=== PATIENT | female | born 1940 | race Caucasian/White ===

== ENCOUNTER → 2016-10-18 | Outpatient (CLI) | payer MEDICARE, OTHER ==
[2014-11-19 16:33] VITALS: BP 146/82
[~2016-10-18] MED LIST: ALPR1TAB6 PO; ATEN25TA PO; CHOL10002 PO; CHOL5000 PO; ESTR42.53 VG; GLUCOSAMINE 1,1 EACH PO; LOSA50TA6 PO; MULT-246 PO; OMEP20CA9 PO; QUET100T PO; QUET50TA8 PO; SERT25TA4 PO; SERT50TA8 PO; SIMV20TA3 PO
--- NOTE | 2016-10-18 18:08 | CARD ---
APPROVED REPORT EXAM: Two-dimensional and M-mode echocardiogram with Doppler and color Doppler. Other Information Quality : GoodHR: 57bpm Rhythm : Bradycardia with PVC's INDICATION Dyspnea Aortic insuffinciency, Mitral regurgitation, 2D DIMENSIONS RVDd3.2 (2.9-3.5cm)Left Atrium(2D)3.4 (1.6-4.0cm) IVSd0.9 (0.7-1.1cm)Aortic Root(2D)2.8 (2.0-3.7cm) LVDd4.8 (3.9-5.9cm)LVOT Diameter2.1 (1.8-2.4cm) PWd0.9 (0.7-1.1cm)LVDs3.2 (2.5-4.0cm) FS (%) 34.5 %SV69.7 ml LVEF(%)63.0 (>50%) Aortic Valve AoV Peak Sudhakar.168.7cm/sAoV VTI31.0cm AO Peak GR.11.4mmHgLVOT Peak Sudhakar.102.5cm/s LVOT VTI 24.66cmAO Mean GR.5mmHg BONI (VMAX)2.51ny7XUR (VTI)2.77cm2 AI P 1/2 Ksnh618co Mitral Valve MV E Vetgrjer04.4cm/sMV DECEL OCXP655ux MV A Ztlmjrpx43.4cm/sMV E Mean Gr.1mmHg MV JIS31keF/A Ratio1.0 MV A Gmnbfvlp847usBBF (PHT)4.22cm2 TDI E/Lateral E'8.4E/Medial E'15.2 Pulmonary Valve PV Peak Rixcnabe33.4cm/sPV Peak Grad.3mmHg RVOT VTI18.1cm Tricuspid Valve TR P. Sgcjhhkf028hk/sRAP YMUENBYP3nqUi TR Peak Gr.88cnFzAOCL03ffFw Pulmonary Vein S1 Rtpekfmw92.4cm/sD2 Rsjurefe09.0cm/s PVa mrhlcywl808gmmv LEFT VENTRICLE The left ventricle is normal size. Patient has mild concentric left ventricular hypertrophy Left vent ricle systolic function is normal. The Ejection Fraction is 63%. There is normal LV segmental wall mo tion. The left ventricular diastolic function and filling is normal for age. There is no ventricular septal defect visualized. RIGHT VENTRICLE The right ventricle is normal size. The right ventricular systolic function is normal. ATRIA The left atrium size is normal. The right atrium size is normal. The interatrial septum is intact wit h no evidence for an atrial septal defect or patent foramen ovale as noted on 2-D or Doppler imaging. AORTIC VALVE The aortic valve is mildly thickened but opens well. The aortic valve is trileaflet. Doppler and [place] r Flow revealed moderate aortic regurgitation. There is no significant aortic valvular stenosis. MITRAL VALVE The mitral valve is normal in structure. There is no evidence of mitral valve prolapse. There is no m itral valve stenosis. Doppler and Color Flow revealed mild mitral regurgitation. TRICUSPID VALVE The tricuspid valve is normal in structure. Doppler and Color Flow revealed moderate tricuspid regurg itation. The PA pressure was estimated at 40 mmHg. There is no tricuspid valve stenosis. PULMONIC VALVE The pulmonary valve is normal in structure. Doppler and Color Flow revealed mild pulmonic valvular re gurgitation. There is no pulmonic valvular stenosis. GREAT VESSELS The aortic root is normal in size. The ascending aorta is dilated at 3.4cm. Normal pulmonary venous f low (Doppler). The IVC is normal in size and collapses >50% with inspiration. PERICARDIAL EFFUSION There is no pleural effusion. There is no evidence of significant pericardial effusion. Critical Notification Critical Value: No <Conclusion> Left ventricle systolic function is normal. The Ejection Fraction is 63%. Patient has mild concentric left ventricular hypertrophy The left atrium size is normal. The right atrium size is normal. The aortic valve is mildly thickened but opens well. The aortic valve is trileaflet. Doppler and Color Flow revealed moderate aortic regurgitation. Doppler and Color Flow revealed mild mitral regurgitation. Doppler and Color Flow revealed moderate tricuspid regurgitation. The PA pressure was estimated at 40 mmHg. Doppler and Color Flow revealed mild pulmonic valvular regurgitation. The ascending aorta is dilated at 3.4cm. There is no evidence of significant pericardial effusion.
== END | disposition home or self-care (01) ==
LOC: ECHO 12:34
PROVIDERS: ATTEND Internal Medicine Cardiovascular Disease
DX: I08.3 Combined rheumatic disorders of mitral, aortic and tricuspid valves (principal)
CPT/HCPCS: 93306

== ENCOUNTER → 2016-12-15 | Outpatient (CLI) | payer MEDICARE, OTHER ==
[2014-11-19 16:33] VITALS: BP 146/82
[2016-12-15 09:18] LABS: FREE T4 0.83 ng/dL (0.76-1.46)
[2016-12-15 09:29] LABS: CHOLESTEROL/HDL RATIO 2.1
== END | disposition home or self-care (01) ==
LOC: RT 08:08
PROVIDERS: ATTEND Psychiatry & Neurology Neurology
DX: E78.5 Hyperlipidemia, unspecified (principal); R41.3 Other amnesia
CPT/HCPCS: 36415; 80061; 82550; 82607; 84439; 84443; 95816

== ENCOUNTER 2018-09-02 19:31 | Inpatient (IN) | payer MEDICAID, MEDICARE, OTHER ==
[~2018-09-02] VITALS: Ht 154.9 cm; Wt 69.6 kg
[~2018-09-02 19:31] MED LIST changes: +LOSA-73 PO; -LOSA50TA6 PO; +OMEP20CA10 PO; -OMEP20CA9 PO; -QUET50TA8 PO; +QUET50TA9 PO
--- NOTE | 2018-09-02 19:56 | PHYS DOC ---
Adult General Chief Complaint Chief Complaint: MECHANICAL FALL HPI HPI Patient is a 78-year-old female who presents with complaint of pain to her left lower leg and left arm after falling at about 5 PM. Patient states that since injury she has not been able to bear weight on her left leg. She rates pain as mild at this time because she is lying still but states that if she tries to move either of the affected extremities, pain is much worse. She denies any head injury or loss of consciousness. She denies chest pain or shortness of breath. Review of Systems Review of Systems Constitutional: Denies fever or chills [] Respiratory: Denies cough or shortness of breath [] Cardiovascular: No additional information not addressed in HPI [] Musculoskeletal: Complains of left wrist and left upper arm as well as left lower leg pain [] Neurologic: Denies headache, focal weakness or sensory changes [] All other systems were reviewed and found to be within normal limits, except as documented in this note. Current Medications Current Medications Current Medications Medications (Trade) Dose Ordered Sig/[facility] Start Time Stop Time Status Last Admin Dose Admin Fentanyl Citrate (Fentanyl 2ml Vial) 50 mcg 1X ONCE 09/02/18 21:30 09/02/18 21:31 DC 09/02/18 21:09 50 MCG Hydromorphone HCl (Dilaudid) 0.5 mg 1X ONCE 09/02/18 23:30 09/02/18 23:31 DC 09/02/18 23:25 0.5 MG Ondansetron HCl (Zofran) 4 mg 1X ONCE 09/02/18 20:15 09/02/18 20:16 DC 09/02/18 20:05 4 MG Allergies Allergies Allergies Coded Allergies Type Severity Reaction Last Updated Verified Penicillins Allergy Intermediate Hives 11/19/14 Yes duloxetine Adverse Reaction Mild Diarrhea 05/04/15 No Physical Exam Physical Exam Constitutional: Well developed, well nourished, no acute distress, non-toxic appearance. [] HENT: Normocephalic, atraumatic, bilateral external ears normal, oropharynx moist, no oral exudates, nose normal. [] Eyes: PERRLA, EOMI, conjunctiva normal, no discharge. [] Neck: Normal range of motion, no tenderness, supple. [] Cardiovascular:Heart rate regular rhythm, no murmur [] Lungs & Thorax: Bilateral breath sounds clear to auscultation [] Abdomen: Bowel sounds normal, soft, no tenderness. [] Skin: Warm, dry, no erythema, no rash. [] Extremities: Examination of left arm demonstrates tenderness to palpation around the radial aspect of the wrist as well as tenderness to palpation around the mid to proximal humerus. Patient is unable to tolerate range of motion at the shoulder. Examination of the left lower leg demonstrates tenderness to palpation around the proximal tibia just below the knee. [] Neurologic: Alert and oriented X 3, no focal deficits noted. [] Current Patient Data Vital Signs Vital Signs Date Time Temp Pulse Resp B/P (MAP) Pulse Ox O2 Delivery O2 Flow Rate FiO2 09/02/18 23:55 18 09/02/18 23:27 78 09/02/18 22:31 95 09/02/18 19:40 98.0 133/67 (89) Room Air 98.0 EKG EKG [] Radiology/Procedures Radiology/Procedures [] Impressions: PROCEDURE: CT LOWER EXTREMITY WO LEFT INDICATION: possible lateral tibial plateau fracture , trauma COMPARISON: None. TECHNIQUE: Axial CT images obtained through the left knee. One or more of the following individualized dose reduction techniques were utilized for this examination: 1. Automated exposure control; 2. Adjustment of the mA and/or kV according to patient size; 3. Use of iterative reconstruction technique. FINDINGS: Lipohemarthrosis is identified. There is some edema to the soft tissues. There is an acute appearing fracture identified of the proximal tibia extending intra-articularly through the lateral tibial plateau and the intercondylar region. Calcific atherosclerosis. Osseous demineralization. Subcutaneous collateral vessel. IMPRESSION: 1. Fracture is identified of the proximal tibia extending intra-articularly with joint effusion identified including lipohemarthrosis. 2. Osseous demineralization and calcific atherosclerosis. Electronically signed by: Pablo Donahue MD (09/03/2018 12:26 AM) [facility] Course & Med Decision Making Course & Med Decision Making Pertinent Labs and Imaging studies reviewed. (See chart for details) [] Dragon Disclaimer Dragon Disclaimer This electronic medical record was generated, in whole or in part, using a voice recognition dictation system. Departure Departure Impression: Primary Impression: Tibial plateau fracture, left Additional Impressions: Distal radius fracture, left Fracture of neck of left humerus Disposition: 09 ADMITTED INPATIENT Admitting Physician: Natalia Garcia Condition: IMPROVED Referrals: ELIGIO HUGHES (PCP) Problem Qualifiers Primary Impression: Tibial plateau fracture, left Encounter type: initial encounter Fracture type: closed Qualified Codes: S82.142A - Displaced bicondylar fracture of left tibia, initial encounter for closed fracture Additional Impressions: Distal radius fracture, left Encounter type: initial encounter Fracture type: closed Fracture morphology : Colles' Qualified Codes: S52.532A - Colles' fracture of left radius, initial encounter for closed fracture Fracture of neck of left humerus Encounter type: initial encounter Fracture type: closed Qualified Codes: S42.212A - Unspecified displaced fracture of surgical neck of left humerus, initial encounter for closed fracture NIYAH FUENTES Jr. DO Sep 02, 2018 19:56
[2018-09-02] MEDS ORDERED: ONDANSETRON PF 4 MG/2 ML VIAL. IV ONE (20:15)
[2018-09-02] MEDS ORDERED: fentaNYL PF VIAL 100 MCG/2 ML VIAL IV ONE ×2 (20:15→21:30)
--- NOTE | 2018-09-02 22:44 | RAD ---
KNEE LEFT 3V (AP, oblique, lateral) INDICATION: knee pain after fall COMPARISON: None. FINDINGS: There is cortical irregularity and lucency involving the lateral tibial plateau. No suprapatellar joint effusion. The joint spaces are maintained. Bony mineralization is normal for the patient's age. No significant soft tissue abnormality. No radiopaque foreign body. IMPRESSION: Cortical irregularity and lucency involving the lateral tibial plateau. Findings are concerning for an impacted fracture, although a distinct fracture line cannot be seen. Correlate with physical exam for point tenderness in this region. This is often associated with a suprapatellar lipohemarthrosis, but no suprapatellar effusion is seen on this exam. A CT knee could be obtained for further evaluation. Electronically signed by: Memo Disla MD (09/02/2018 10:41 PM) [facility]
--- NOTE | 2018-09-02 22:46 | RAD ---
TIBIA FIBULA LEFT (AP, lateral) INDICATION: leg pain after fall COMPARISON: None. FINDINGS: Incomplete visualization of the distal fibula and tibia. There is cortical irregularity and lucency involving the lateral tibial plateau. No suprapatellar joint effusion. The joint spaces are maintained. Bony mineralization is normal for the patient's age. No significant soft tissue abnormality. No radiopaque foreign body. IMPRESSION: Cortical irregularity and lucency involving the lateral tibial plateau. Findings are concerning for an impacted fracture, although a distinct fracture line cannot be seen. Correlate with physical exam for point tenderness in this region. A CT knee could be obtained for further evaluation. Electronically signed by: Memo Disla MD (09/02/2018 10:44 PM) [facility]
[2018-09-02] MEDS ORDERED: HYDROmorphone 2 MG/ML VIAL IV ONE (23:30)
[2018-09-03] VITALS (7 sets, daily range): BP systolic 93–133; BP diastolic 48–69
--- NOTE | 2018-09-03 00:29 | RAD ---
INDICATION: possible lateral tibial plateau fracture , trauma COMPARISON: None. TECHNIQUE: Axial CT images obtained through the left knee. One or more of the following individualized dose reduction techniques were utilized for this examination: 1. Automated exposure control; 2. Adjustment of the mA and/or kV according to patient size; 3. Use of iterative reconstruction technique. FINDINGS: Lipohemarthrosis is identified. There is some edema to the soft tissues. There is an acute appearing fracture identified of the proximal tibia extending intra-articularly through the lateral tibial plateau and the intercondylar region. Calcific atherosclerosis. Osseous demineralization. Subcutaneous collateral vessel. IMPRESSION: 1. Fracture is identified of the proximal tibia extending intra-articularly with joint effusion identified including lipohemarthrosis. 2. Osseous demineralization and calcific atherosclerosis. Electronically signed by: Pablo Donahue MD (09/03/2018 12:26 AM) [facility]
--- NOTE | 2018-09-03 01:30 | NUR ---
The patient, FANNIE LEVIN, 78 y/o, F admitted by EDGARD SPAULDING MD, was given written information regarding hospital policies, unit procedures and contact persons. Admission assessment complete, plan of care reviewed, admit packet discussed with pt. Pt vital signs are stable, afebrile, and c/o moderate pain 4 out of 10[address], affected extremity elevated, and ice pack placed on left shoulder. Pt's family present on admission, call light in reach, valuables given to daughter to take home, pt's clothes in bag with pt in room, will monitor pt closely.
[2018-09-03] MEDS ORDERED: ONDANSETRON PF 4 MG/2 ML VIAL. IV PRN (02:00)
[2018-09-03] MEDS ORDERED: oxyCODONE/APAP 5/325 1 TAB TABLET PO PRN (02:00)
[2018-09-03] MEDS ORDERED: MORPHINE SULFATE 2 MG/ML VIAL. IV PRN (02:00)
[2018-09-03] MEDS ORDERED: ACETAMINOPHEN 325 MG TABLET. PO PRN (02:00)
[2018-09-03] MEDS: IV DEXTROSE 5 %-0.45 % NACL 1,000 ML IV SCH ×2 (02:29→22:30)
[2018-09-03 03:58] LABS: BASO % 0 % (0-3); EOS % 0 % (0-3); HEMATOCRIT 33.4 % (36.0-47.0); HEMOGLOBIN 11.4 g/dL (12.0-15.5); LYMPH # 0.5 x10^3/uL (1.0-4.8); LYMPH % 6 % (24-48); MEAN CORPUSCULAR HEMOGLOBIN 32 pg (25-35); MEAN CORPUSCULAR HGB CONC 34 g/dL (31-37); MEAN CORPUSCULAR VOLUME 93 fL (79-100); MONO # 0.6 x10^3/uL (0.0-1.1); MONO % 7 % (0-9); NEUT # 7.8 x10^3uL (1.8-7.7); NEUT % 87 % (31-73); PLATELET COUNT 178 x10^3/uL (140-400)
[2018-09-03 04:01] LABS: CALCIUM 9.1 mg/dL (8.5-10.1); CREATININE 1.2 mg/dL (0.6-1.0); GFR 43.7; POTASSIUM 4.5 mmol/L (3.5-5.1)
[2018-09-03 04:07] LABS: ALBUMIN 3.4 g/dL (3.4-5.0); ALBUMIN/GLOBULIN RATIO 1.1 (1.0-1.7); TOTAL BILIRUBIN 0.7 mg/dL (0.2-1.0); TOTAL PROTEIN 6.5 g/dL (6.4-8.2)
[2018-09-03] MEDS ORDERED: QUET100T4 PO (04:43)
[2018-09-03] MEDS ORDERED: MULT1TAB52 PO (04:43)
[2018-09-03] MEDS ORDERED: RANI300C PO (04:43)
[2018-09-03] MEDS ORDERED: ATEN25TA PO (04:43)
[2018-09-03] MEDS ORDERED: ALPR0.5T6 PO (04:43)
[2018-09-03] MEDS ORDERED: DONE5TAB7 PO (04:43)
[2018-09-03 05:42] LABS: % LYMPHS 1 % (24-48); % MONOS 2 % (0-10); % SEGS 97 % (35-66); PLT ESTIMATE ADEQUATE (ADEQUATE)
[2018-09-03] MEDS: MORPHINE SULFATE 2 MG/ML VIAL. IV PRN ×2 (07:31→11:04)
--- NOTE | 2018-09-03 08:26 | RAD ---
EXAM: 1. 2 views left humerus 2. 2 views left forearm 3. 3 views left wrist DATE: 09/02/2018 8:33 PM INDICATION: arm pain after fall COMPARISON: No Prior FINDINGS: Left humerus: There is an acute fracture of the proximal humerus including a transverse/impaction component of the surgical neck as well as the fracture plane extending through the greater tuberosity. No significant displacement. Diffusely decreased bone mineral density. Left forearm: Distal radial fracture as described below in the left wrist section. No definite proximal left forearm fracture. Diffusely decreased bone mineral density. No elbow joint effusion. Left wrist: There is an acute fracture of the distal radius with sclerosis along the margin and moderate associated soft tissue swelling including bulging of the pronator fat pad. No obvious intra-articular extension. Neutral radial tilt. Mild flattening of the inclination angle. Diffusely decreased bone mineral density. Advanced thumb CMC joint degenerative changes. IMPRESSION: 1. Acute fracture of the surgical neck of the left humerus extending into the greater tuberosity 2. Acute fracture of the distal left radius without obvious intra-articular extension. 3. Decreased bone mineral density. Electronically signed by: Alvarado Escalera MD (09/03/2018 8:23 AM) [facility]
--- NOTE | 2018-09-03 08:28 | RAD ---
EXAM: AP pelvis, AP and lateral views of the left hip DATE: 09/02/2018 9:20 PM INDICATION: PAIN AFTER FALL TO HIP COMPARISON: No Prior FINDINGS: Marked osteopenia limits evaluation for acute fracture. Within these constraints no displaced fracture is identified. Old/healed left inferior pubic ramus fracture is seen with contour deformity. Moderate to large volume colonic stool content is seen. Vascular calcifications are seen. IMPRESSION: 1. Within the constraints of osteopenia no evidence for acute fracture. If there is persistent clinical concern for fracture, MRI is recommended given the degree of osteopenia. Electronically signed by: Alvarado Escalera MD (09/03/2018 8:25 AM) [facility]
[2018-09-03] MEDS: LOSARTAN POTASSIUM 50 MG TABLET. PO SCH (11:12)
--- NOTE | 2018-09-03 11:17 | HP ---
ADMIT DATE: 09/03/2018 CHIEF COMPLAINT: Fall. HISTORY OF PRESENT ILLNESS: The patient is a pleasant 78-year-old female who I suspect has early dementia. She really does not remember much. She fell. She keeps complaining of left arm pain, left leg pain, left wrist pain. They did imaging. She has got fractures of the tibial plateau, the humeral neck and the distal radius. She has now been admitted to the orthopedics floor. We are consulting Orthopedics. As I understand, she is actually not going to require surgery, but I suspect she is definitely going to need retirement at least. PAST MEDICAL HISTORY: Probable dementia. ALLERGIES: PENICILLIN. FAMILY HISTORY: Coronary artery disease. SOCIAL HISTORY: She does not drink, smoke or take drugs. She lives in a house, I believe, with her son. MEDICATIONS: Reviewed, please refer to the MRAD. REVIEW OF SYSTEMS: Unreliable. The patient too confused. PHYSICAL EXAMINATION: VITAL SIGNS: Temperature afebrile, pulse 98, respirations 18, blood pressure 133/90. GENERAL: She is pleasantly confused. Her daughter is present, is a very good support for her (her name is Nean). HEART: Normal S1, S2. LUNGS: Clear to auscultation. ABDOMEN: Soft. EXTREMITIES: No edema. Left arm is in a sling. The left leg is in a brace. ENDOCRINE: No thyromegaly. LYMPHATICS: No cervical nodes. HEMATOPOIETIC: No bruising. PSYCHIATRIC: She is anxious. NEUROLOGICAL: She is confused. LABORATORY DATA: Hemoglobin is 11. BUN is a little high at 22, creatinine 1.2, glucose 186. ASSESSMENT AND PLAN: Fall with multiple fractures. The patient has been admitted. We consulted Orthopedics. As I understand, there is no surgery required. She is going to definitely need skilled may be even long-term care placement. For now, we are going to do p.r.n. morphine, PT, OT, p.r.n. Zofran. DVT prophylaxis. Full code. Home meds. PROGNOSIS: Guarded. JE MADISON DO DR: GUILLE/camron JOB#: [id number] / [id number]
[2018-09-03] MEDS: MULTIVITAMIN with MINERAL TABLET. PO SCH (11:30)
[2018-09-03] MEDS ORDERED: ATENOLOL 12.5 MG PO SCH (11:30)
[2018-09-03] MEDS: ALPRAZolam 0.5 MG TABLET PO SCH ×2 (11:30→21:00)
[2018-09-03] MEDS: CHOLECALCIFEROL (VITAMIN D3) 1,000 UNIT TABLET PO SCH (11:30)
[2018-09-03] MEDS: PANTOPRAZOLE 40 MG TABLET.DR. PO SCH (11:31)
[2018-09-03] MEDS: SERTRALINE 50 MG TABLET. PO SCH (11:32)
[2018-09-03] MEDS: ATENOLOL 25 MG TABLET. PO SCH (11:32)
[2018-09-03] MEDS ORDERED: NON FORMULARY ITEM (Ranitidine Hcl 1 CAP) PO SCH (12:00)
[2018-09-03] MEDS ORDERED: ESTRADIOL 0.01% VAGINAL CREAM 42.5GM TUBE. VG SCH (12:00)
--- NOTE | 2018-09-03 12:20 | NUR ---
SS following for discharge planning. SS reviewed pt chart. Pt is from home with spouse and is currently requiring oxygen. PT/OT ordered. SS will await PT/OT evaluations and recommendations and will proceed accordingly with discharge planning.
[2018-09-03] MEDS ORDERED: ALPRAZolam 1 MG TABLET PO SCH (13:00)
[2018-09-03] MEDS: oxyCODONE/APAP 5/325 1 TAB TABLET PO PRN (19:16)
--- NOTE | 2018-09-03 19:30 | PDOC2 ---
CONSULT Date of Consult Date of Consult DATE: 09/03/18 TIME: 19:23 Reason for Consult Reason for Consult: Multiple fractures Identification/Chief Complaint Chief Complaint Left shoulder pain, left wrist pain, left knee pain Source Source: Caregiver, Chart review, Patient History of Present Illness Reason for Visit: This pleasant 78 her old woman since she tripped and fell down the stairs, and had severe shoulder pain. She was able to put some weight on the leg initially but has gotten more sore. She was admitted with multiple fractures, all of them closed Past Medical History Cardiovascular: Aortic stenosis, Valve insufficiency, Other Pulmonary: No pertinent hx GI: Other Heme/Onc: No pertinent hx Hepatobiliary: No pertinent hx Psych: No pertinent hx Musculoskeletal: Osteoarthritis Infectious disease: No pertinent hx Renal/: Chronic renal insuff Social History Lives: with Family Current Problem List Problem List Problems Medical Problems: (1) Distal radius fracture, left Status: Acute (2) Fracture of neck of left humerus Status: Acute (3) Tibial plateau fracture, left Status: Acute Current Medications Current Medications Current Medications Fentanyl Citrate (Fentanyl 2ml Vial) 50 mcg 1X ONCE IV Last administered on at 20:05; Start 09/02/18 at 20:15; Stop 09/02/18 at 20:16; Status DC Ondansetron HCl (Zofran) 4 mg 1X ONCE IV Last administered on 09/02/18at 20:05 ; Start 09/02/18 at 20:15; Stop 09/02/18 at 20:16; Status DC Fentanyl Citrate (Fentanyl 2ml Vial) 50 mcg 1X ONCE IV Last administered on at 21:09; Start 09/02/18 at 21:30; Stop 09/02/18 at 21:31; Status DC Hydromorphone HCl (Dilaudid) 0.5 mg 1X ONCE IV Last administered on 09/02/18at 23:25; Start 09/02/18 at 23:30; Stop 09/02/18 at 23:31; Status DC Acetaminophen (Tylenol) 650 mg PRN Q6HRS PRN PO MILD PAIN / TEMP; Start at 02:00 Ondansetron HCl (Zofran) 4 mg PRN Q4HRS PRN IV NAUSEA/VOMITING 1ST CHOICE; Start 09/03/18 at 02:00 Morphine Sulfate (Morphine Sulfate) 1 mg PRN Q3HRS PRN IV MODERATE PAIN; Start 09/03/18 at 02:00 Morphine Sulfate (Morphine Sulfate) 2 mg PRN Q3HRS PRN IV SEVERE PAIN Last administered on 09/03/18 11:04; Start 09/03/18 at 02:00 Dextrose/Sodium Chloride 1,000 ml @ 50 mls/hr Q20H IV Last administered on at 02:29; Start 09/03/18 at 02:30 Oxycodone/ Acetaminophen (Percocet 5/325) 1 tab PRN Q6HRS PRN PO SEVERE PAIN Last administered on 09/03/18 12:27; Start 09/03/18 at 02:00; Stop 09/03/18 at 13:16; Status DC Alprazolam (Xanax) 0.5 mg BID PO Last administered on 09/03/18 11:30; Start at 11:30 Alprazolam (Xanax) 1 mg QID PO ; Start 09/03/18 at 13:00; Stop 09/03/18 at 13:00 ; Status DC Vitamin D (Vitamin D3) 1,000 unit DAILY PO Last administered on 09/03/18at 11:30 ; Start 09/03/18 at 11:30 Vitamin D (Vitamin D3) 5,000 unit HS PO ; Start 09/03/18 at 21:00 Estradiol (Estrace) 1 nini 3X/WEEK VG ; Start 09/03/18 at 12:00 Losartan Potassium (Cozaar) 50 mg DAILY PO ; Start 09/03/18 at 11:30 Sertraline HCl (Zoloft) 50 mg DAILY PO Last administered on 09/03/18at 11:32; Start 09/03/18 at 11:30 Atenolol (Tenormin) 25 mg DAILY PO Last administered on 09/03/18at 11:32; Start 09/03/18 at 11:30 Non-Formulary Medication (Atenolol ) 12.5 mg DAILYBFRLUN PO ; Start 09/03/18 at 11:30; Stop 09/03/18 at 11:30; Status DC Donepezil HCl (Aricept) 5 mg QHS PO ; Start 09/03/18 at 21:00 Multivitamins (Thera M Plus) 1 tab DAILY PO ; Start 09/03/18 at 11:30 Pantoprazole Sodium (Protonix) 40 mg DAILYAC PO Last administered on 09/03/18at 11:31; Start 09/03/18 at 11:30 Non-Formulary Medication (Quetiapine Fumarate ) 100 mg HS PO ; Start 09/03/18 at 21:00; Stop 09/03/18 at 21:00; Status DC Non-Formulary Medication (Quetiapine Fumarate (Seroquel Xr)) 100 mg QHS PO ; Start 09/03/18 at 21:00; Stop 09/03/18 at 21:00; Status DC Quetiapine Fumarate (SEROquel) 125 mg QHS PO ; Start 09/03/18 at 21:00 Non-Formulary Medication (Ranitidine Hcl ) 1 cap NOON PO ; Start 09/03/18 at 12: 00; Status UNV Simvastatin (Zocor) 20 mg HS PO ; Start 09/03/18 at 21:00 Oxycodone/ Acetaminophen (Percocet 5/325) 1 tab PRN Q4HRS PRN PO MODERATE PAIN ; Start 09/03/18 at 13:15 Aspirin (Ecotrin) 325 mg DAILY PO ; Start 09/04/18 at 09:00; Stop 10/04/18 at 08 :59 Oxycodone/ Acetaminophen (Percocet 5/325) 2 tab PRN Q4HRS PRN PO SEVERE PAIN Last administered on 09/03/18at 19:16; Start 09/03/18 at 13:30 Active Scripts Active Reported Donepezil Hcl 5 Mg Tablet 5 Mg PO HS Seroquel (Quetiapine Fumarate) 100 Mg Tablet 125 Mg PO HS Atenolol 25 Mg Tablet 1 Tab PO DAILY Ranitidine Hcl 300 Mg Capsule 1 Cap PO NOON Alprazolam 0.5 Mg Tablet 1 Tab PO BID Multivitamins (Multivitamin) 1 Each Tablet 1 Tab PO DAILY Estrace (Estradiol) 42.5 Gm Cream.appl 1 Gm VG 3X/WEEK Vitamin D (Cholecalciferol (Vitamin D3)) 1,000 Unit Tablet 1,000 Unit PO DAILY Seroquel Xr (Quetiapine Fumarate) 50 Mg Tab.er.24h 100 Mg PO QHS Sertraline Hcl 50 Mg Tablet 50 Mg PO DAILY Vitamin D3 (Cholecalciferol (Vitamin D3)) 5,000 Unit Capsule 5,000 Unit PO HS Quetiapine Fumarate 100 Mg Tablet 100 Mg PO HS Simvastatin 20 Mg Tablet 20 Mg PO HS Atenolol 25 Mg Tablet 12.5 Mg PO DAILYBFRLUN Omeprazole 20 Mg Capsule.dr 20 Mg PO DAILY Losartan Potassium 50 Mg Tablet 50 Mg PO DAILY Alprazolam 1 Mg Tablet 1 Mg PO QID 1 mg am and noon, 0.5 mg 5pm and HS Glucosamine 1,500 Complex Cp (Gluc Sheppard/Chondro Sheppard A/Vit C/Mn) 1 Each Capsule 1 Each PO Allergies Allergies: Coded Allergies: Penicillins (Verified Allergy, Intermediate, Hives, 11/19/14) duloxetine (Unverified Adverse Reaction, Mild, Diarrhea, 05/04/15) ROS HEENT: No: Heacaches Respiratory: No: Cough Cardiovascular: No Chest Pain Gastrointestinal: No Nausea, No Vomiting Genitourinary: No Hematuria Musculoskeletal: Yes Joint Pain Physical Exam General: Alert, Cooperative, No acute distress HEENT: Atraumatic Lungs: Normal air movement Heart: Regular rate Abdomen: Soft Extremities: Other (the left upper extremity shows tenderness and swelling at the shoulder. There is some ecchymosis. The skin is intact otherwise. There is no evidence of neurovascular injury. There is a splint on the wrist, and a sling which supports the shoulder. There is tenderness at the distal radius. Finger active range of motion is intact for radial ulnar and median nerve sensory and motor function. There is some tenderness at the elbow but no apparent fracture, possibly contusion at the elbow.) Skin: No breakdown, No significant lesion Neuro: Normal speech, Sensation intact Psych/Mental Status: Mood NL MUSCULOSKELETAL: Abnormal exam of left (the left knee shows tenderness but no large effusion, no deformity. The skin is intact with no bruising. The knee immobilizer was loosened from the examination. The distal neurovascular function is normal. There is no evidence of compartment syndrome) Vitals VITALS Vital Signs Date Time Temp Pulse Resp B/P (MAP) Pulse Ox O2 Delivery O2 Flow Rate FiO2 09/03/18 19:16 96 Nasal Cannula 2.0 09/03/18 15:00 98.1 51 18 97/54 (68) 98.1 Labs Labs Laboratory Tests Test 09/03/18 02:35 White Blood Count 9.0 x10^3/uL (4.0-11.0) Red Blood Count 3.60 x10^6/uL (3.50-5.40) Hemoglobin 11.4 g/dL (12.0-15.5) Hematocrit 33.4 % (36.0-47.0) Mean Corpuscular Volume 93 fL (79-100) Mean Corpuscular Hemoglobin 32 pg (25-35) Mean Corpuscular Hemoglobin Concent 34 g/dL (31-37) Red Cell Distribution Width 13.0 % (11.5-14.5) Platelet Count 178 x10^3/uL (140-400) Neutrophils (%) (Auto) 87 % (31-73) Lymphocytes (%) (Auto) 6 % (24-48) Monocytes (%) (Auto) 7 % (0-9) Eosinophils (%) (Auto) 0 % (0-3) Basophils (%) (Auto) 0 % (0-3) Neutrophils # (Auto) 7.8 x10^3uL (1.8-7.7) Lymphocytes # (Auto) 0.5 x10^3/uL (1.0-4.8) Monocytes # (Auto) 0.6 x10^3/uL (0.0-1.1) Eosinophils # (Auto) 0.0 x10^3/uL (0.0-0.7) Basophils # (Auto) 0.0 x10^3/uL (0.0-0.2) Segmented Neutrophils % 97 % (35-66) Lymphocytes % 1 % (24-48) Monocytes % 2 % (0-10) Platelet Estimate Adequate (ADEQUATE) Sodium Level 142 mmol/L (136-145) Potassium Level 4.5 mmol/L (3.5-5.1) Chloride Level 108 mmol/L (98-107) Carbon Dioxide Level 27 mmol/L (21-32) Anion Gap 7 (6-14) Blood Urea Nitrogen 22 mg/dL (7-20) Creatinine 1.2 mg/dL (0.6-1.0) Estimated GFR (Cockcroft-Gault) 43.7 BUN/Creatinine Ratio 18 (6-20) Glucose Level 186 mg/dL (70-99) Calcium Level 9.1 mg/dL (8.5-10.1) Total Bilirubin 0.7 mg/dL (0.2-1.0) Aspartate Amino Transf (AST/SGOT) 17 U/L (15-37) Alanine Aminotransferase (ALT/SGPT) 11 U/L (14-59) Alkaline Phosphatase 59 U/L (46-116) Total Protein 6.5 g/dL (6.4-8.2) Albumin 3.4 g/dL (3.4-5.0) Albumin/Globulin Ratio 1.1 (1.0-1.7) Laboratory Tests Test 09/03/18 02:35 White Blood Count 9.0 x10^3/uL (4.0-11.0) Red Blood Count 3.60 x10^6/uL (3.50-5.40) Hemoglobin 11.4 g/dL (12.0-15.5) Hematocrit 33.4 % (36.0-47.0) Mean Corpuscular Volume 93 fL (79-100) Mean Corpuscular Hemoglobin 32 pg (25-35) Mean Corpuscular Hemoglobin Concent 34 g/dL (31-37) Red Cell Distribution Width 13.0 % (11.5-14.5) Platelet Count 178 x10^3/uL (140-400) Neutrophils (%) (Auto) 87 % (31-73) Lymphocytes (%) (Auto) 6 % (24-48) Monocytes (%) (Auto) 7 % (0-9) Eosinophils (%) (Auto) 0 % (0-3) Basophils (%) (Auto) 0 % (0-3) Neutrophils # (Auto) 7.8 x10^3uL (1.8-7.7) Lymphocytes # (Auto) 0.5 x10^3/uL (1.0-4.8) Monocytes # (Auto) 0.6 x10^3/uL (0.0-1.1) Eosinophils # (Auto) 0.0 x10^3/uL (0.0-0.7) Basophils # (Auto) 0.0 x10^3/uL (0.0-0.2) Segmented Neutrophils % 97 % (35-66) Lymphocytes % 1 % (24-48) Monocytes % 2 % (0-10) Platelet Estimate Adequate (ADEQUATE) Sodium Level 142 mmol/L (136-145) Potassium Level 4.5 mmol/L (3.5-5.1) Chloride Level 108 mmol/L (98-107) Carbon Dioxide Level 27 mmol/L (21-32) Anion Gap 7 (6-14) Blood Urea Nitrogen 22 mg/dL (7-20) Creatinine 1.2 mg/dL (0.6-1.0) Estimated GFR (Cockcroft-Gault) 43.7 BUN/Creatinine Ratio 18 (6-20) Glucose Level 186 mg/dL (70-99) Calcium Level 9.1 mg/dL (8.5-10.1) Total Bilirubin 0.7 mg/dL (0.2-1.0) Aspartate Amino Transf (AST/SGOT) 17 U/L (15-37) Alanine Aminotransferase (ALT/SGPT) 11 U/L (14-59) Alkaline Phosphatase 59 U/L (46-116) Total Protein 6.5 g/dL (6.4-8.2) Albumin 3.4 g/dL (3.4-5.0) Albumin/Globulin Ratio 1.1 (1.0-1.7) Images Images Reports reviewed, images independently reviewed. CT scan of the knee shows a minimally displaced lateral tibial plateau fracture. The forearm has a buckle fracture of the distal radius, without significant shortening or angulation. There is a proximal humerus fracture which is comminuted but otherwise nondisplaced. [facility] [address] [place] [address] IMAGING REPORT Signed PATIENT: FANNIE LEVIN ACCOUNT: [id number] : 1940 LOCATION: [address] [place] [address] AGE: 78 SEX: F EXAM STATUS: ADM IN ORD. PHYSICIAN: NIYAH FUENTES Jr., DO REASON: fall PROCEDURE: WRIST 3V LEFT EXAM: 1. 2 views left humerus 2. 2 views left forearm 3. 3 views left wrist DATE: 09/02/2018 8:33 PM INDICATION: arm pain after fall COMPARISON: No Prior FINDINGS: Left humerus: There is an acute fracture of the proximal humerus including a transverse/impaction component of the surgical neck as well as the fracture plane extending through the greater tuberosity. No significant displacement. Diffusely decreased bone mineral density. Left forearm: Distal radial fracture as described below in the left wrist section. No definite proximal left forearm fracture. Diffusely decreased bone mineral density. No elbow joint effusion. Left wrist: There is an acute fracture of the distal radius with sclerosis along the margin and moderate associated soft tissue swelling including bulging of the pronator fat pad. No obvious intra-articular extension. Neutral radial tilt. Mild flattening of the inclination angle. Diffusely decreased bone mineral density. Advanced thumb CMC joint degenerative changes. IMPRESSION: 1. Acute fracture of the surgical neck of the left humerus extending into the greater tuberosity 2. Acute fracture of the distal left radius without obvious intra-articular extension. 3. Decreased bone mineral density. Electronically signed by: Alvarado García MD (09/03/2018 8:23 AM) [facility] DICTATED and SIGNED BY: ALVARADO GARCÍA MD DATE: 09/03/18 0823 Assessment/Plan Assessment/Plan Closed left proximal humerus fracture. Closed left distal radius fracture. Closed left tibial plateau fracture, lateral tibial plateau. I believe all of these should be treated nonoperatively. I discussed this with her family and with her. I would recommend an aspirin daily at a minimum for DVT prophylaxis, perhaps something stronger while she is an inpatient, or at residential. I think she can weight-bear for balance on the left leg with the knee immobilizer. She should protect the shoulder with the arm sling, or a pillow as needed. Continue the splint on the left wrist for about 1-2 weeks, then we will switch to a cast in the office. No surgery is planned. ROXANNE GORDON MD Sep 03, 2018 19:30
[2018-09-03] MEDS: SIMVASTATIN 20 MG TABLET PO SCH (20:45)
[2018-09-03] MEDS: DONEPEZIL HCL 5 MG TABLET. PO SCH (20:45)
[2018-09-03] MEDS: CHOLECALCIFEROL (VITAMIN D3) 5,000 UNIT CAPSULE PO SCH (20:45)
[2018-09-03] MEDS: QUEtiapine 25 MG TABLET. PO SCH (21:00)
[2018-09-03] MEDS ORDERED: QUETIAPINE FUMARATE 100 MG PO SCH ×2 (21:00)
[2018-09-04 03:00] VITALS: BP 99/47
[2018-09-04] MEDS: PANTOPRAZOLE 40 MG TABLET.DR. PO SCH (06:26)
[2018-09-04 07:00] VITALS: BP 106/46
[2018-09-04] MEDS: ATENOLOL 25 MG TABLET. PO SCH (08:41)
[2018-09-04] MEDS: CHOLECALCIFEROL (VITAMIN D3) 1,000 UNIT TABLET PO SCH (08:41)
[2018-09-04] MEDS: ALPRAZolam 0.5 MG TABLET PO SCH ×2 (08:42→20:41)
[2018-09-04] MEDS: MULTIVITAMIN with MINERAL TABLET. PO SCH (08:42)
[2018-09-04] MEDS: SERTRALINE 50 MG TABLET. PO SCH (08:42)
[2018-09-04] MEDS: LOSARTAN POTASSIUM 50 MG TABLET. PO SCH (08:42)
[2018-09-04] MEDS: ASPIRIN ENTERIC COATED 325 MG TABLET.DR. PO SCH (08:42)
--- NOTE | 2018-09-04 09:50 | PDOC ---
ORTHO PROGRESS NOTES Subjective Patient painful but feeling better. Post-op Day: 1 Procedure Fall with multiple fractures,including distal radius,and comminuted humerus fracture, and left tibial plateau fracture. Vitals Vital Signs Date Time Temp Pulse Resp B/P (MAP) Pulse Ox O2 Delivery O2 Flow Rate FiO2 09/04/18 08:42 61 106/46 09/04/18 07:00 98.2 18 96 Nasal Cannula 2.0 98.2 Labs Laboratory Tests Test 09/03/18 02:35 09/03/18 05:00 White Blood Count 9.0 x10^3/uL (4.0-11.0) Red Blood Count 3.60 x10^6/uL (3.50-5.40) Hemoglobin 11.4 g/dL (12.0-15.5) Hematocrit 33.4 % (36.0-47.0) Mean Corpuscular Volume 93 fL (79-100) Mean Corpuscular Hemoglobin 32 pg (25-35) Mean Corpuscular Hemoglobin Concent 34 g/dL (31-37) Red Cell Distribution Width 13.0 % (11.5-14.5) Platelet Count 178 x10^3/uL (140-400) Neutrophils (%) (Auto) 87 % (31-73) Lymphocytes (%) (Auto) 6 % (24-48) Monocytes (%) (Auto) 7 % (0-9) Eosinophils (%) (Auto) 0 % (0-3) Basophils (%) (Auto) 0 % (0-3) Neutrophils # (Auto) 7.8 x10^3uL (1.8-7.7) Lymphocytes # (Auto) 0.5 x10^3/uL (1.0-4.8) Monocytes # (Auto) 0.6 x10^3/uL (0.0-1.1) Eosinophils # (Auto) 0.0 x10^3/uL (0.0-0.7) Basophils # (Auto) 0.0 x10^3/uL (0.0-0.2) Segmented Neutrophils % 97 % (35-66) Lymphocytes % 1 % (24-48) Monocytes % 2 % (0-10) Platelet Estimate Adequate (ADEQUATE) Sodium Level 142 mmol/L (136-145) Potassium Level 4.5 mmol/L (3.5-5.1) Chloride Level 108 mmol/L (98-107) Carbon Dioxide Level 27 mmol/L (21-32) Anion Gap 7 (6-14) Blood Urea Nitrogen 22 mg/dL (7-20) Creatinine 1.2 mg/dL (0.6-1.0) Estimated GFR (Cockcroft-Gault) 43.7 BUN/Creatinine Ratio 18 (6-20) Glucose Level 186 mg/dL (70-99) Calcium Level 9.1 mg/dL (8.5-10.1) Total Bilirubin 0.7 mg/dL (0.2-1.0) Aspartate Amino Transf (AST/SGOT) 17 U/L (15-37) Alanine Aminotransferase (ALT/SGPT) 11 U/L (14-59) Alkaline Phosphatase 59 U/L (46-116) Total Protein 6.5 g/dL (6.4-8.2) Albumin 3.4 g/dL (3.4-5.0) Albumin/Globulin Ratio 1.1 (1.0-1.7) 25-Hydroxy Vitamin D Total 38.8 ng/mL (30-100) Nasal Screen MRSA (PCR) Negative (Negative) Notes awake and alert asking appropriate questions Assessment and Plan Fall from stairs with multiple fractures continue icing wrist and humerus ok for SNU per Ortho standpoint Followup in clinic for cast placement in [address] Bates's note patient able to toe touch weight bear for transfers GRETCHEN GABRIEL APRN Sep 04, 2018 09:50
--- NOTE | 2018-09-04 10:18 | PDOC ---
PROGRESS NOTES Chief Complaint Chief Complaint Closed fracture of L proximal humerus Closed L distal radius fracture Closed L tibial plateau fracture History of Present Illness History of Present Illness Ms. Wray is a 78 yo female presented with multiple fractures. Patient has no new complaints. Seen and examined at the bedside. Awaiting SNU placement. Ortho following, no surgery at this time. Vitals Vitals Vital Signs Date Time Temp Pulse Resp B/P (MAP) Pulse Ox O2 Delivery O2 Flow Rate FiO2 09/04/18 08:42 61 106/46 09/04/18 08:00 Nasal Cannula 09/04/18 07:00 98.2 18 96 2.0 98.2 Physical Exam General: Alert, Cooperative, No acute distress Heart: Regular rate, No murmurs Lungs: Clear Abdomen: Normal bowel sounds, Soft, No tenderness Extremities: No clubbing, No cyanosis, Other (the left upper extremity shows tenderness and swelling at the shoulder. There is some ecchymosis. The skin is intact otherwise. There is no evidence of neurovascular injury. There is a splint on the wrist, and a sling which supports the shoulder. There is tenderness at the distal radius. Finger active range of motion is intact for radial ulnar and median nerve sensory and motor function. There is some tenderness at the elbow but no apparent fracture, possibly contusion at the elbow.) Skin: No breakdown, No significant lesion Review of Systems Review of Systems Denies pain Denies abdominal pain Reports L upper arm swelling Assessment and Plan Assessmemt and Plan Problems Medical Problems: (1) Distal radius fracture, left Status: Acute (2) Fracture of neck of left humerus Status: Acute (3) Tibial plateau fracture, left Status: Acute Assessment: Closed fracture of L proximal humerus Closed L distal radius fracture Closed L tibial plateau fracture Plan: Awaiting SNU transfer Pain management Appreciate ortho input Continue to follow labs PT/OT as tolerated Continue home meds Comment Review of Relevant I have reviewed the following items jean (where applicable) has been applied. Labs Laboratory Tests Test 09/03/18 02:35 09/03/18 05:00 White Blood Count 9.0 x10^3/uL (4.0-11.0) Red Blood Count 3.60 x10^6/uL (3.50-5.40) Hemoglobin 11.4 g/dL (12.0-15.5) Hematocrit 33.4 % (36.0-47.0) Mean Corpuscular Volume 93 fL (79-100) Mean Corpuscular Hemoglobin 32 pg (25-35) Mean Corpuscular Hemoglobin Concent 34 g/dL (31-37) Red Cell Distribution Width 13.0 % (11.5-14.5) Platelet Count 178 x10^3/uL (140-400) Neutrophils (%) (Auto) 87 % (31-73) Lymphocytes (%) (Auto) 6 % (24-48) Monocytes (%) (Auto) 7 % (0-9) Eosinophils (%) (Auto) 0 % (0-3) Basophils (%) (Auto) 0 % (0-3) Neutrophils # (Auto) 7.8 x10^3uL (1.8-7.7) Lymphocytes # (Auto) 0.5 x10^3/uL (1.0-4.8) Monocytes # (Auto) 0.6 x10^3/uL (0.0-1.1) Eosinophils # (Auto) 0.0 x10^3/uL (0.0-0.7) Basophils # (Auto) 0.0 x10^3/uL (0.0-0.2) Segmented Neutrophils % 97 % (35-66) Lymphocytes % 1 % (24-48) Monocytes % 2 % (0-10) Platelet Estimate Adequate (ADEQUATE) Sodium Level 142 mmol/L (136-145) Potassium Level 4.5 mmol/L (3.5-5.1) Chloride Level 108 mmol/L (98-107) Carbon Dioxide Level 27 mmol/L (21-32) Anion Gap 7 (6-14) Blood Urea Nitrogen 22 mg/dL (7-20) Creatinine 1.2 mg/dL (0.6-1.0) Estimated GFR (Cockcroft-Gault) 43.7 BUN/Creatinine Ratio 18 (6-20) Glucose Level 186 mg/dL (70-99) Calcium Level 9.1 mg/dL (8.5-10.1) Total Bilirubin 0.7 mg/dL (0.2-1.0) Aspartate Amino Transf (AST/SGOT) 17 U/L (15-37) Alanine Aminotransferase (ALT/SGPT) 11 U/L (14-59) Alkaline Phosphatase 59 U/L (46-116) Total Protein 6.5 g/dL (6.4-8.2) Albumin 3.4 g/dL (3.4-5.0) Albumin/Globulin Ratio 1.1 (1.0-1.7) 25-Hydroxy Vitamin D Total 38.8 ng/mL (30-100) Nasal Screen MRSA (PCR) Negative (Negative) Medications Current Medications Fentanyl Citrate (Fentanyl 2ml Vial) 50 mcg 1X ONCE IV Last administered on at 20:05; Start 09/02/18 at 20:15; Stop 09/02/18 at 20:16; Status DC Ondansetron HCl (Zofran) 4 mg 1X ONCE IV Last administered on 09/02/18at 20:05 ; Start 09/02/18 at 20:15; Stop 09/02/18 at 20:16; Status DC Fentanyl Citrate (Fentanyl 2ml Vial) 50 mcg 1X ONCE IV Last administered on at 21:09; Start 09/02/18 at 21:30; Stop 09/02/18 at 21:31; Status DC Hydromorphone HCl (Dilaudid) 0.5 mg 1X ONCE IV Last administered on 09/02/18at 23:25; Start 09/02/18 at 23:30; Stop 09/02/18 at 23:31; Status DC Acetaminophen (Tylenol) 650 mg PRN Q6HRS PRN PO MILD PAIN / TEMP; Start at 02:00 Ondansetron HCl (Zofran) 4 mg PRN Q4HRS PRN IV NAUSEA/VOMITING 1ST CHOICE; Start 09/03/18 at 02:00 Morphine Sulfate (Morphine Sulfate) 1 mg PRN Q3HRS PRN IV MODERATE PAIN; Start 09/03/18 at 02:00 Morphine Sulfate (Morphine Sulfate) 2 mg PRN Q3HRS PRN IV SEVERE PAIN Last administered on 09/03/18at 11:04; Start 09/03/18 at 02:00 Dextrose/Sodium Chloride 1,000 ml @ 50 mls/hr Q20H IV Last administered on at 02:29; Start 09/03/18 at 02:30 Oxycodone/ Acetaminophen (Percocet 5/325) 1 tab PRN Q6HRS PRN PO SEVERE PAIN Last administered on 09/03/18at 12:27; Start 09/03/18 at 02:00; Stop 09/03/18 at 13:16; Status DC Alprazolam (Xanax) 0.5 mg BID PO Last administered on 09/04/18 08:42; Start at 11:30 Alprazolam (Xanax) 1 mg QID PO ; Start 09/03/18 at 13:00; Stop 09/03/18 at 13:00 ; Status DC Vitamin D (Vitamin D3) 1,000 unit DAILY PO Last administered on 09/04/18 08:41 ; Start 09/03/18 at 11:30 Vitamin D (Vitamin D3) 5,000 unit HS PO Last administered on 09/03/18 20:45; Start 09/03/18 at 21:00 Estradiol (Estrace) 1 nini 3X/WEEK VG ; Start 09/03/18 at 12:00 Losartan Potassium (Cozaar) 50 mg DAILY PO Last administered on 09/04/18 08:42 ; Start 09/03/18 at 11:30 Sertraline HCl (Zoloft) 50 mg DAILY PO Last administered on 09/04/18 08:42; Start 09/03/18 at 11:30 Atenolol (Tenormin) 25 mg DAILY PO Last administered on 09/04/18 08:41; Start 09/03/18 at 11:30 Non-Formulary Medication (Atenolol ) 12.5 mg DAILYBFRLUN PO ; Start 09/03/18 at 11:30; Stop 09/03/18 at 11:30; Status DC Donepezil HCl (Aricept) 5 mg QHS PO Last administered on 09/03/18 20:45; Start 09/03/18 at 21:00 Multivitamins (Thera M Plus) 1 tab DAILY PO ; Start 09/03/18 at 11:30 Pantoprazole Sodium (Protonix) 40 mg DAILYAC PO Last administered on 09/04/18 06:26; Start 09/03/18 at 11:30 Non-Formulary Medication (Quetiapine Fumarate ) 100 mg HS PO ; Start 09/03/18 at 21:00; Stop 09/03/18 at 21:00; Status DC Non-Formulary Medication (Quetiapine Fumarate (Seroquel Xr)) 100 mg QHS PO ; Start 09/03/18 at 21:00; Stop 09/03/18 at 21:00; Status DC Quetiapine Fumarate (SEROquel) 125 mg QHS PO ; Start 09/03/18 at 21:00 Non-Formulary Medication (Ranitidine Hcl ) 1 cap NOON PO ; Start 09/03/18 at 12: 00; Status UNV Simvastatin (Zocor) 20 mg HS PO Last administered on 09/03/18at 20:45; Start at 21:00 Oxycodone/ Acetaminophen (Percocet 5/325) 1 tab PRN Q4HRS PRN PO MODERATE PAIN ; Start 09/03/18 at 13:15 Aspirin (Ecotrin) 325 mg DAILY PO Last administered on 09/04/18at 08:42; Start 09/04/18 at 09:00; Stop 10/04/18 at 08:59 Oxycodone/ Acetaminophen (Percocet 5/325) 2 tab PRN Q4HRS PRN PO SEVERE PAIN Last administered on 09/03/18at 19:16; Start 09/03/18 at 13:30 Active Scripts Active Reported Donepezil Hcl 5 Mg Tablet 5 Mg PO HS Seroquel (Quetiapine Fumarate) 100 Mg Tablet 125 Mg PO HS Atenolol 25 Mg Tablet 1 Tab PO DAILY Ranitidine Hcl 300 Mg Capsule 1 Cap PO NOON Alprazolam 0.5 Mg Tablet 1 Tab PO BID Multivitamins (Multivitamin) 1 Each Tablet 1 Tab PO DAILY Estrace (Estradiol) 42.5 Gm Cream.appl 1 Gm VG 3X/WEEK Vitamin D (Cholecalciferol (Vitamin D3)) 1,000 Unit Tablet 1,000 Unit PO DAILY Seroquel Xr (Quetiapine Fumarate) 50 Mg Tab.er.24h 100 Mg PO QHS Sertraline Hcl 50 Mg Tablet 50 Mg PO DAILY Vitamin D3 (Cholecalciferol (Vitamin D3)) 5,000 Unit Capsule 5,000 Unit PO HS Quetiapine Fumarate 100 Mg Tablet 100 Mg PO HS Simvastatin 20 Mg Tablet 20 Mg PO HS Atenolol 25 Mg Tablet 12.5 Mg PO DAILYBFRLUN Omeprazole 20 Mg Capsule.dr 20 Mg PO DAILY Losartan Potassium 50 Mg Tablet 50 Mg PO DAILY Alprazolam 1 Mg Tablet 1 Mg PO QID 1 mg am and noon, 0.5 mg 5pm and HS Glucosamine 1,500 Complex Cp (Gluc Sheppard/Chondro Sheppard A/Vit C/Mn) 1 Each Capsule 1 Each PO Vitals/I & O Vital Sign - Last 24 Hours 09/03/18 09/03/18 09/03/18 09/03/18 11:00 11:04 11:12 11:32 Temp 98.2 98.2 Pulse 68 Resp 18 16 B/P (MAP) 93/48 (63) 93/48 93/48 Pulse Ox 95 O2 Delivery Nasal Cannula Nasal Cannula O2 Flow Rate 2.0 2.0 09/03/18 09/03/18 09/03/18 09/03/18 11:35 12:27 15:00 19:00 Temp 98.1 98.3 98.1 98.3 Pulse 51 81 Resp 16 16 18 16 B/P (MAP) 97/54 (68) 97/60 (72) Pulse Ox 96 92 O2 Delivery Nasal Cannula Room Air Room Air O2 Flow Rate 2.0 2.0 09/03/18 09/03/18 09/03/18 09/03/18 19:16 20:00 20:16 23:00 Temp 98.3 98.3 Pulse 56 Resp 18 B/P (MAP) 129/63 (85) Pulse Ox 96 96 95 O2 Delivery Nasal Cannula Nasal Cannula Nasal Cannula Room Air O2 Flow Rate 2.0 2.0 2.0 09/04/18 09/04/18 09/04/18 09/04/18 03:00 07:00 08:00 08:41 Temp 98.7 98.2 98.7 98.2 Pulse 50 61 61 Resp 16 18 B/P (MAP) 99/47 (64) 106/46 (66) 106/46 Pulse Ox 97 96 O2 Delivery Room Air Nasal Cannula Nasal Cannula O2 Flow Rate 2.0 09/04/18 08:42 Pulse 61 B/P (MAP) 106/46 JE MADISON III DO Sep 04, 2018 10:18
[2018-09-04 11:00] VITALS: BP 90/41
--- NOTE | 2018-09-04 11:10 | RAD ---
CHEST PA LATERAL CLINICAL INDICATION: LEFT SIDED RIB PAIN COMPARISON: None FINDINGS: Suboptimal positioning due to scoliosis of the thoracic spine. Heart is normal in size. Large sliding hiatal hernia is seen. Linear scarring or atelectasis seen in the left lower lobe. Otherwise, lungs are clear. No pneumothorax or pleural effusion. Compression deformity seen of the lower thoracic vertebral body, age indeterminate. IMPRESSION: 1. Large sliding hiatal hernia. 2. No acute pulmonary process. Electronically signed by: Hunter Echols DO (09/04/2018 11:06 AM) [facility]
[2018-09-04] MEDS: oxyCODONE/APAP 5/325 1 TAB TABLET PO PRN ×3 (11:16→20:42)
--- NOTE | 2018-09-04 12:11 | NUR ---
SW following. Discussed with RN, SW awaiting PT/OT eval for discharge planning. SW will continue to follow.
[2018-09-04] MEDS: IV DEXTROSE 5 %-0.45 % NACL 1,000 ML IV SCH (14:07)
[2018-09-04 15:00] VITALS: BP 89/48
--- NOTE | 2018-09-04 15:50 | NUR ---
SW following. GERRY met with pt and dtrCam at bedside ([phone]) to discuss SNU referral. Family and pt would like referral sent to [facility]. SW faxed referral to [facility]. Insurance will need to authorize. RN notified. GERRY will continue to follow.
[2018-09-04 19:15] VITALS: BP 97/63
[2018-09-04] MEDS: QUEtiapine 25 MG TABLET. PO SCH (20:41)
[2018-09-04] MEDS: SIMVASTATIN 20 MG TABLET PO SCH (20:41)
[2018-09-04] MEDS: DONEPEZIL HCL 5 MG TABLET. PO SCH (20:41)
[2018-09-04] MEDS: CHOLECALCIFEROL (VITAMIN D3) 5,000 UNIT CAPSULE PO SCH (20:41)
[2018-09-04 23:22] VITALS: BP 74/33
[2018-09-04] MEDS ORDERED: IV RINGERS,LACTATED 1000ML 1,000 ML IV ONE (23:45)
[2018-09-05] MEDS ORDERED: IV RINGERS,LACTATED 1000ML 1,000 ML IV ONE (00:45)
[2018-09-05 02:40] VITALS: BP 86/48
[2018-09-05 05:12] LABS: BASO % 0 % (0-3); EOS # 0.1 x10^3/uL (0.0-0.7); EOS % 2 % (0-3); HEMATOCRIT 24.9 % (36.0-47.0); HEMOGLOBIN 8.3 g/dL (12.0-15.5); LYMPH # 0.9 x10^3/uL (1.0-4.8); LYMPH % 20 % (24-48); MEAN CORPUSCULAR HEMOGLOBIN 31 pg (25-35); MEAN CORPUSCULAR HGB CONC 33 g/dL (31-37); MEAN CORPUSCULAR VOLUME 93 fL (79-100); MONO # 0.4 x10^3/uL (0.0-1.1); MONO % 9 % (0-9); NEUT # 3.3 x10^3uL (1.8-7.7); NEUT % 69 % (31-73); PLATELET COUNT 123 x10^3/uL (140-400); RED BLOOD COUNT 2.67 x10^6/uL (3.50-5.40); RED CELL DISTRIBUTION WIDTH 13.1 % (11.5-14.5); WHITE BLOOD COUNT 4.7 x10^3/uL (4.0-11.0)
[2018-09-05 05:35] LABS: ALBUMIN/GLOBULIN RATIO 0.8 (1.0-1.7); CALCIUM 8.2 mg/dL (8.5-10.1); CREATININE 0.9 mg/dL (0.6-1.0); GFR 60.9; POTASSIUM 3.9 mmol/L (3.5-5.1); TOTAL BILIRUBIN 0.6 mg/dL (0.2-1.0); TOTAL PROTEIN 4.4 g/dL (6.4-8.2)
[2018-09-05 07:00] VITALS: BP 116/76
[2018-09-05] MEDS: PANTOPRAZOLE 40 MG TABLET.DR. PO SCH (07:44)
[2018-09-05] MEDS: IV DEXTROSE 5 %-0.45 % NACL 1,000 ML IV SCH (07:44)
[2018-09-05] MEDS: MULTIVITAMIN with MINERAL TABLET. PO SCH (08:57)
[2018-09-05] MEDS: ALPRAZolam 0.5 MG TABLET PO SCH (08:57)
[2018-09-05] MEDS: CHOLECALCIFEROL (VITAMIN D3) 1,000 UNIT TABLET PO SCH (08:58)
[2018-09-05] MEDS: SERTRALINE 50 MG TABLET. PO SCH (08:58)
[2018-09-05] MEDS: ASPIRIN ENTERIC COATED 325 MG TABLET.DR. PO SCH (09:00)
[2018-09-05] MEDS: ATENOLOL 25 MG TABLET. PO SCH (09:00)
[2018-09-05] MEDS: LOSARTAN POTASSIUM 50 MG TABLET. PO SCH (09:00)
[2018-09-05] MEDS: oxyCODONE/APAP 5/325 1 TAB TABLET PO PRN ×2 (10:18→14:29)
--- NOTE | 2018-09-05 10:36 | NUR ---
SW following. Discussed with RN, possibility of pt discharging to [facility] today if insurance gives auth. SW will continue to follow.
[2018-09-05 11:00] VITALS: BP 85/44
--- NOTE | 2018-09-05 13:17 | PDOC ---
PROGRESS NOTES Chief Complaint Chief Complaint Closed fracture of L proximal humerus Closed L distal radius fracture Closed L tibial plateau fracture History of Present Illness History of Present Illness Ms. Wray is a 78 yo female presented with multiple fractures. Patient has no new complaints. Seen and examined at the bedside. Awaiting SNU placement. Ortho following, no surgery at this time. Vitals Vitals Vital Signs Date Time Temp Pulse Resp B/P (MAP) Pulse Ox O2 Delivery O2 Flow Rate FiO2 09/05/18 11:00 98.7 62 18 85/44 (58) 92 Room Air 98.7 09/05/18 10:18 1.0 Physical Exam General: Alert, Cooperative, No acute distress Heart: Regular rate, No murmurs Lungs: Clear Abdomen: Normal bowel sounds, Soft, No tenderness Extremities: No clubbing, No cyanosis, Other (the left upper extremity shows tenderness and swelling at the shoulder. There is some ecchymosis. The skin is intact otherwise. There is no evidence of neurovascular injury. There is a splint on the wrist, and a sling which supports the shoulder. There is tenderness at the distal radius. Finger active range of motion is intact for radial ulnar and median nerve sensory and motor function. There is some tenderness at the elbow but no apparent fracture, possibly contusion at the elbow.) Skin: No breakdown, No significant lesion Labs LABS Laboratory Tests Test 09/05/18 04:10 White Blood Count 4.7 x10^3/uL (4.0-11.0) Red Blood Count 2.67 x10^6/uL (3.50-5.40) Hemoglobin 8.3 g/dL (12.0-15.5) Hematocrit 24.9 % (36.0-47.0) Mean Corpuscular Volume 93 fL (79-100) Mean Corpuscular Hemoglobin 31 pg (25-35) Mean Corpuscular Hemoglobin Concent 33 g/dL (31-37) Red Cell Distribution Width 13.1 % (11.5-14.5) Platelet Count 123 x10^3/uL (140-400) Neutrophils (%) (Auto) 69 % (31-73) Lymphocytes (%) (Auto) 20 % (24-48) Monocytes (%) (Auto) 9 % (0-9) Eosinophils (%) (Auto) 2 % (0-3) Basophils (%) (Auto) 0 % (0-3) Neutrophils # (Auto) 3.3 x10^3uL (1.8-7.7) Lymphocytes # (Auto) 0.9 x10^3/uL (1.0-4.8) Monocytes # (Auto) 0.4 x10^3/uL (0.0-1.1) Eosinophils # (Auto) 0.1 x10^3/uL (0.0-0.7) Basophils # (Auto) 0.0 x10^3/uL (0.0-0.2) Sodium Level 139 mmol/L (136-145) Potassium Level 3.9 mmol/L (3.5-5.1) Chloride Level 105 mmol/L (98-107) Carbon Dioxide Level 24 mmol/L (21-32) Anion Gap 10 (6-14) Blood Urea Nitrogen 20 mg/dL (7-20) Creatinine 0.9 mg/dL (0.6-1.0) Estimated GFR (Cockcroft-Gault) 60.9 BUN/Creatinine Ratio 22 (6-20) Glucose Level 89 mg/dL (70-99) Calcium Level 8.2 mg/dL (8.5-10.1) Total Bilirubin 0.6 mg/dL (0.2-1.0) Aspartate Amino Transf (AST/SGOT) 14 U/L (15-37) Alanine Aminotransferase (ALT/SGPT) 6 U/L (14-59) Alkaline Phosphatase 35 U/L (46-116) Total Protein 4.4 g/dL (6.4-8.2) Albumin 2.0 g/dL (3.4-5.0) Albumin/Globulin Ratio 0.8 (1.0-1.7) Assessment and Plan Assessmemt and Plan Problems Medical Problems: (1) Distal radius fracture, left Status: Acute (2) Fracture of neck of left humerus Status: Acute (3) Tibial plateau fracture, left Status: Acute Comment Review of Relevant I have reviewed the following items jean (where applicable) has been applied. Labs Laboratory Tests Test 09/05/18 04:10 White Blood Count 4.7 x10^3/uL (4.0-11.0) Red Blood Count 2.67 x10^6/uL (3.50-5.40) Hemoglobin 8.3 g/dL (12.0-15.5) Hematocrit 24.9 % (36.0-47.0) Mean Corpuscular Volume 93 fL (79-100) Mean Corpuscular Hemoglobin 31 pg (25-35) Mean Corpuscular Hemoglobin Concent 33 g/dL (31-37) Red Cell Distribution Width 13.1 % (11.5-14.5) Platelet Count 123 x10^3/uL (140-400) Neutrophils (%) (Auto) 69 % (31-73) Lymphocytes (%) (Auto) 20 % (24-48) Monocytes (%) (Auto) 9 % (0-9) Eosinophils (%) (Auto) 2 % (0-3) Basophils (%) (Auto) 0 % (0-3) Neutrophils # (Auto) 3.3 x10^3uL (1.8-7.7) Lymphocytes # (Auto) 0.9 x10^3/uL (1.0-4.8) Monocytes # (Auto) 0.4 x10^3/uL (0.0-1.1) Eosinophils # (Auto) 0.1 x10^3/uL (0.0-0.7) Basophils # (Auto) 0.0 x10^3/uL (0.0-0.2) Sodium Level 139 mmol/L (136-145) Potassium Level 3.9 mmol/L (3.5-5.1) Chloride Level 105 mmol/L (98-107) Carbon Dioxide Level 24 mmol/L (21-32) Anion Gap 10 (6-14) Blood Urea Nitrogen 20 mg/dL (7-20) Creatinine 0.9 mg/dL (0.6-1.0) Estimated GFR (Cockcroft-Gault) 60.9 BUN/Creatinine Ratio 22 (6-20) Glucose Level 89 mg/dL (70-99) Calcium Level 8.2 mg/dL (8.5-10.1) Total Bilirubin 0.6 mg/dL (0.2-1.0) Aspartate Amino Transf (AST/SGOT) 14 U/L (15-37) Alanine Aminotransferase (ALT/SGPT) 6 U/L (14-59) Alkaline Phosphatase 35 U/L (46-116) Total Protein 4.4 g/dL (6.4-8.2) Albumin 2.0 g/dL (3.4-5.0) Albumin/Globulin Ratio 0.8 (1.0-1.7) Laboratory Tests Test 09/05/18 04:10 White Blood Count 4.7 x10^3/uL (4.0-11.0) Red Blood Count 2.67 x10^6/uL (3.50-5.40) Hemoglobin 8.3 g/dL (12.0-15.5) Hematocrit 24.9 % (36.0-47.0) Mean Corpuscular Volume 93 fL (79-100) Mean Corpuscular Hemoglobin 31 pg (25-35) Mean Corpuscular Hemoglobin Concent 33 g/dL (31-37) Red Cell Distribution Width 13.1 % (11.5-14.5) Platelet Count 123 x10^3/uL (140-400) Neutrophils (%) (Auto) 69 % (31-73) Lymphocytes (%) (Auto) 20 % (24-48) Monocytes (%) (Auto) 9 % (0-9) Eosinophils (%) (Auto) 2 % (0-3) Basophils (%) (Auto) 0 % (0-3) Neutrophils # (Auto) 3.3 x10^3uL (1.8-7.7) Lymphocytes # (Auto) 0.9 x10^3/uL (1.0-4.8) Monocytes # (Auto) 0.4 x10^3/uL (0.0-1.1) Eosinophils # (Auto) 0.1 x10^3/uL (0.0-0.7) Basophils # (Auto) 0.0 x10^3/uL (0.0-0.2) Sodium Level 139 mmol/L (136-145) Potassium Level 3.9 mmol/L (3.5-5.1) Chloride Level 105 mmol/L (98-107) Carbon Dioxide Level 24 mmol/L (21-32) Anion Gap 10 (6-14) Blood Urea Nitrogen 20 mg/dL (7-20) Creatinine 0.9 mg/dL (0.6-1.0) Estimated GFR (Cockcroft-Gault) 60.9 BUN/Creatinine Ratio 22 (6-20) Glucose Level 89 mg/dL (70-99) Calcium Level 8.2 mg/dL (8.5-10.1) Total Bilirubin 0.6 mg/dL (0.2-1.0) Aspartate Amino Transf (AST/SGOT) 14 U/L (15-37) Alanine Aminotransferase (ALT/SGPT) 6 U/L (14-59) Alkaline Phosphatase 35 U/L (46-116) Total Protein 4.4 g/dL (6.4-8.2) Albumin 2.0 g/dL (3.4-5.0) Albumin/Globulin Ratio 0.8 (1.0-1.7) Medications Current Medications Fentanyl Citrate (Fentanyl 2ml Vial) 50 mcg 1X ONCE IV Last administered on at 20:05; Start 09/02/18 at 20:15; Stop 09/02/18 at 20:16; Status DC Ondansetron HCl (Zofran) 4 mg 1X ONCE IV Last administered on 09/02/18at 20:05 ; Start 09/02/18 at 20:15; Stop 09/02/18 at 20:16; Status DC Fentanyl Citrate (Fentanyl 2ml Vial) 50 mcg 1X ONCE IV Last administered on at 21:09; Start 09/02/18 at 21:30; Stop 09/02/18 at 21:31; Status DC Hydromorphone HCl (Dilaudid) 0.5 mg 1X ONCE IV Last administered on 09/02/18at 23:25; Start 09/02/18 at 23:30; Stop 09/02/18 at 23:31; Status DC Acetaminophen (Tylenol) 650 mg PRN Q6HRS PRN PO MILD PAIN / TEMP; Start at 02:00 Ondansetron HCl (Zofran) 4 mg PRN Q4HRS PRN IV NAUSEA/VOMITING 1ST CHOICE; Start 09/03/18 at 02:00 Morphine Sulfate (Morphine Sulfate) 1 mg PRN Q3HRS PRN IV MODERATE PAIN; Start 09/03/18 at 02:00 Morphine Sulfate (Morphine Sulfate) 2 mg PRN Q3HRS PRN IV SEVERE PAIN Last administered on 09/03/18at 11:04; Start 09/03/18 at 02:00 Dextrose/Sodium Chloride 1,000 ml @ 50 mls/hr Q20H IV Last administered on 07:44; Start 09/03/18 at 02:30 Oxycodone/ Acetaminophen (Percocet 5/325) 1 tab PRN Q6HRS PRN PO SEVERE PAIN Last administered on 09/03/18 12:27; Start 09/03/18 at 02:00; Stop 09/03/18 at 13:16; Status DC Alprazolam (Xanax) 0.5 mg BID PO Last administered on 09/05/18 08:57; Start at 11:30 Alprazolam (Xanax) 1 mg QID PO ; Start 09/03/18 at 13:00; Stop 09/03/18 at 13:00 ; Status DC Vitamin D (Vitamin D3) 1,000 unit DAILY PO Last administered on 09/05/18 08:58 ; Start 09/03/18 at 11:30 Vitamin D (Vitamin D3) 5,000 unit HS PO Last administered on 09/04/18 20:41; Start 09/03/18 at 21:00 Estradiol (Estrace) 1 nini 3X/WEEK VG ; Start 09/03/18 at 12:00; Stop 09/05/18 at 09:22; Status DC Losartan Potassium (Cozaar) 50 mg DAILY PO Last administered on 09/04/18 08:42 ; Start 09/03/18 at 11:30 Sertraline HCl (Zoloft) 50 mg DAILY PO Last administered on 09/05/18 08:58; Start 09/03/18 at 11:30 Atenolol (Tenormin) 25 mg DAILY PO Last administered on 09/04/18 08:41; Start 09/03/18 at 11:30 Non-Formulary Medication (Atenolol ) 12.5 mg DAILYBFRLUN PO ; Start 09/03/18 at 11:30; Stop 09/03/18 at 11:30; Status DC Donepezil HCl (Aricept) 5 mg QHS PO Last administered on 09/04/18 20:41; Start 09/03/18 at 21:00 Multivitamins (Thera M Plus) 1 tab DAILY PO Last administered on 09/05/18 08: 57; Start 09/03/18 at 11:30 Pantoprazole Sodium (Protonix) 40 mg DAILYAC PO Last administered on 09/05/18at 07:44; Start 09/03/18 at 11:30 Non-Formulary Medication (Quetiapine Fumarate ) 100 mg HS PO ; Start 09/03/18 at 21:00; Stop 09/03/18 at 21:00; Status DC Non-Formulary Medication (Quetiapine Fumarate (Seroquel Xr)) 100 mg QHS PO ; Start 09/03/18 at 21:00; Stop 09/03/18 at 21:00; Status DC Quetiapine Fumarate (SEROquel) 125 mg QHS PO Last administered on 09/04/18at 20: 41; Start 09/03/18 at 21:00 Non-Formulary Medication (Ranitidine Hcl ) 1 cap NOON PO ; Start 09/03/18 at 12: 00; Status UNV Simvastatin (Zocor) 20 mg HS PO Last administered on 09/04/18at 20:41; Start at 21:00 Oxycodone/ Acetaminophen (Percocet 5/325) 1 tab PRN Q4HRS PRN PO MODERATE PAIN Last administered on 09/05/18at 10:18; Start 09/03/18 at 13:15 Aspirin (Ecotrin) 325 mg DAILY PO Last administered on 09/05/18 09:00; Start 09/04/18 at 09:00; Stop 10/04/18 at 08:59 Oxycodone/ Acetaminophen (Percocet 5/325) 2 tab PRN Q4HRS PRN PO SEVERE PAIN Last administered on 09/04/18at 20:42; Start 09/03/18 at 13:30 Ringer's Solution 1,000 ml @ 200 mls/hr 1X ONCE IV Last administered on at 01:17; Start 09/04/18 at 23:45; Stop 09/05/18 at 04:44; Status DC Ringer's Solution 1,000 ml @ 200 mls/hr 1X ONCE IV Last administered on at 01:17; Start 09/05/18 at 00:45; Stop 09/05/18 at 05:44; Status DC Active Scripts Active Reported Donepezil Hcl 5 Mg Tablet 5 Mg PO HS Seroquel (Quetiapine Fumarate) 100 Mg Tablet 125 Mg PO HS Atenolol 25 Mg Tablet 1 Tab PO DAILY Ranitidine Hcl 300 Mg Capsule 1 Cap PO NOON Alprazolam 0.5 Mg Tablet 1 Tab PO BID Multivitamins (Multivitamin) 1 Each Tablet 1 Tab PO DAILY Vitamin D (Cholecalciferol (Vitamin D3)) 1,000 Unit Tablet 1,000 Unit PO DAILY Seroquel Xr (Quetiapine Fumarate) 50 Mg Tab.er.24h 100 Mg PO QHS Sertraline Hcl 50 Mg Tablet 50 Mg PO DAILY Vitamin D3 (Cholecalciferol (Vitamin D3)) 5,000 Unit Capsule 5,000 Unit PO HS Quetiapine Fumarate 100 Mg Tablet 100 Mg PO HS Simvastatin 20 Mg Tablet 20 Mg PO HS Atenolol 25 Mg Tablet 12.5 Mg PO DAILYBFRLUN Omeprazole 20 Mg Capsule.dr 20 Mg PO DAILY Losartan Potassium 50 Mg Tablet 50 Mg PO DAILY Alprazolam 1 Mg Tablet 1 Mg PO QID 1 mg am and noon, 0.5 mg 5pm and HS Glucosamine 1,500 Complex Cp (Gluc Sheppard/Chondro Sheppard A/Vit C/Mn) 1 Each Capsule 1 Each PO Vitals/I & O Vital Sign - Last 24 Hours 09/04/18 09/04/18 09/04/18 09/04/18 15:00 16:08 19:15 20:00 Temp 98.3 98.8 98.3 98.8 Pulse 54 67 Resp 18 16 18 B/P (MAP) 89/48 (62) 97/63 (74) Pulse Ox 93 94 O2 Delivery Room Air Room Air Room Air Room Air 09/04/18 09/04/18 09/04/18 09/05/18 20:42 21:42 23:22 02:40 Temp 98.3 98.4 98.3 98.4 Pulse 65 61 Resp 15 15 18 18 B/P (MAP) 74/33 (47) 86/48 (61) Pulse Ox 91 95 O2 Delivery Room Air Room Air Nasal Cannula Room Air O2 Flow Rate 1.0 09/05/18 09/05/18 09/05/18 09/05/18 07:00 07:56 10:18 11:00 Temp 97.8 98.7 97.8 98.7 Pulse 58 62 Resp 18 16 18 B/P (MAP) 116/76 (89) 85/44 (58) Pulse Ox 93 92 O2 Delivery Nasal Cannula Room Air Room Air Room Air O2 Flow Rate 1.0 1.0 Intake and Output 09/04/18 09/04/18 09/05/18 15:00 23:00 07:00 Intake Total 180 ml 120 ml 2100 ml Balance 180 ml 120 ml 2100 ml ALEXANDRE CHAN MD Sep 05, 2018 13:17
[2018-09-05] MEDS ORDERED: OXYC1TAB15 PO (13:43)
--- NOTE | 2018-09-05 13:50 | PDOC3 ---
Discharge Summary Visit Information Date of Admission: Sep 03, 2018 Date of Discharge: Sep 05, 2018 Admitting Diagnosis: that is post mechanical fall Final Diagnosis Closed left proximal humerus fracture. Closed left distal radius fracture. Closed left tibial plateau fracture, lateral tibial plateau. Brief Hospital Course Allergies Allergies Coded Allergies Type Severity Reaction Last Updated Verified Penicillins Allergy Intermediate Hives 11/19/14 Yes duloxetine Adverse Reaction Mild Diarrhea 05/04/15 No Vital Signs Vital Signs Date Time Temp Pulse Resp B/P (MAP) Pulse Ox O2 Delivery O2 Flow Rate FiO2 09/05/18 11:18 16 Room Air 09/05/18 11:00 98.7 62 85/44 (58) 92 98.7 09/05/18 10:18 1.0 Lab Results Laboratory Tests Test 09/05/18 04:10 White Blood Count 4.7 x10^3/uL (4.0-11.0) Red Blood Count 2.67 x10^6/uL (3.50-5.40) Hemoglobin 8.3 g/dL (12.0-15.5) Hematocrit 24.9 % (36.0-47.0) Mean Corpuscular Volume 93 fL (79-100) Mean Corpuscular Hemoglobin 31 pg (25-35) Mean Corpuscular Hemoglobin Concent 33 g/dL (31-37) Red Cell Distribution Width 13.1 % (11.5-14.5) Platelet Count 123 x10^3/uL (140-400) Neutrophils (%) (Auto) 69 % (31-73) Lymphocytes (%) (Auto) 20 % (24-48) Monocytes (%) (Auto) 9 % (0-9) Eosinophils (%) (Auto) 2 % (0-3) Basophils (%) (Auto) 0 % (0-3) Neutrophils # (Auto) 3.3 x10^3uL (1.8-7.7) Lymphocytes # (Auto) 0.9 x10^3/uL (1.0-4.8) Monocytes # (Auto) 0.4 x10^3/uL (0.0-1.1) Eosinophils # (Auto) 0.1 x10^3/uL (0.0-0.7) Basophils # (Auto) 0.0 x10^3/uL (0.0-0.2) Sodium Level 139 mmol/L (136-145) Potassium Level 3.9 mmol/L (3.5-5.1) Chloride Level 105 mmol/L (98-107) Carbon Dioxide Level 24 mmol/L (21-32) Anion Gap 10 (6-14) Blood Urea Nitrogen 20 mg/dL (7-20) Creatinine 0.9 mg/dL (0.6-1.0) Estimated GFR (Cockcroft-Gault) 60.9 BUN/Creatinine Ratio 22 (6-20) Glucose Level 89 mg/dL (70-99) Calcium Level 8.2 mg/dL (8.5-10.1) Total Bilirubin 0.6 mg/dL (0.2-1.0) Aspartate Amino Transf (AST/SGOT) 14 U/L (15-37) Alanine Aminotransferase (ALT/SGPT) 6 U/L (14-59) Alkaline Phosphatase 35 U/L (46-116) Total Protein 4.4 g/dL (6.4-8.2) Albumin 2.0 g/dL (3.4-5.0) Albumin/Globulin Ratio 0.8 (1.0-1.7) Laboratory Tests Test 09/05/18 04:10 White Blood Count 4.7 x10^3/uL (4.0-11.0) Red Blood Count 2.67 x10^6/uL (3.50-5.40) Hemoglobin 8.3 g/dL (12.0-15.5) Hematocrit 24.9 % (36.0-47.0) Mean Corpuscular Volume 93 fL (79-100) Mean Corpuscular Hemoglobin 31 pg (25-35) Mean Corpuscular Hemoglobin Concent 33 g/dL (31-37) Red Cell Distribution Width 13.1 % (11.5-14.5) Platelet Count 123 x10^3/uL (140-400) Neutrophils (%) (Auto) 69 % (31-73) Lymphocytes (%) (Auto) 20 % (24-48) Monocytes (%) (Auto) 9 % (0-9) Eosinophils (%) (Auto) 2 % (0-3) Basophils (%) (Auto) 0 % (0-3) Neutrophils # (Auto) 3.3 x10^3uL (1.8-7.7) Lymphocytes # (Auto) 0.9 x10^3/uL (1.0-4.8) Monocytes # (Auto) 0.4 x10^3/uL (0.0-1.1) Eosinophils # (Auto) 0.1 x10^3/uL (0.0-0.7) Basophils # (Auto) 0.0 x10^3/uL (0.0-0.2) Sodium Level 139 mmol/L (136-145) Potassium Level 3.9 mmol/L (3.5-5.1) Chloride Level 105 mmol/L (98-107) Carbon Dioxide Level 24 mmol/L (21-32) Anion Gap 10 (6-14) Blood Urea Nitrogen 20 mg/dL (7-20) Creatinine 0.9 mg/dL (0.6-1.0) Estimated GFR (Cockcroft-Gault) 60.9 BUN/Creatinine Ratio 22 (6-20) Glucose Level 89 mg/dL (70-99) Calcium Level 8.2 mg/dL (8.5-10.1) Total Bilirubin 0.6 mg/dL (0.2-1.0) Aspartate Amino Transf (AST/SGOT) 14 U/L (15-37) Alanine Aminotransferase (ALT/SGPT) 6 U/L (14-59) Alkaline Phosphatase 35 U/L (46-116) Total Protein 4.4 g/dL (6.4-8.2) Albumin 2.0 g/dL (3.4-5.0) Albumin/Globulin Ratio 0.8 (1.0-1.7) Brief Hospital Course HISTORY OF PRESENT ILLNESS: The patient is a pleasant 78-year-old female who I suspect has early dementia. She really does not remember much. She fell. She keeps complaining of left arm pain, left leg pain, left wrist pain. They did imaging. She has got fractures of the tibial plateau, the humeral neck and the distal radius. She has now been admitted to the orthopedics floor. We are consulting Orthopedics. As I understand, she is actually not going to require surgery, but I suspect she is definitely going to need group home at least. Patient was admitted for evaluation by orthopedic surgery. The patient was not deemed a surgical candidate. Orthopedic surgeon recommendations are greatly appreciated and his recommendations are as follow:all of these should be treated nonoperatively. I discussed this with her family and with her. I would recommend an aspirin daily at a minimum for DVT prophylaxis, perhaps something stronger while she is an inpatient, or at group home. I think she can weight-bear for balance on the left leg with the knee immobilizer. She should protect the shoulder with the arm sling, or a pillow as needed. Continue the splint on the left wrist for about 1-2 weeks, then we will switch to a cast in the office. No surgery is planned. Patient will continue with her recovery and a group home facility Discharge Information Condition at Discharge: Stable Follow Up: Weeks Disposition/Orders: D/C to Home, D/C to Another Facility Scheduled Alprazolam (Alprazolam) 1 Mg Tablet, 1 MG PO QID, Ref 0 (Reported) 1 mg am and noon, 0.5 mg 5pm and HS Entered as Reported by: SPENCER CORDOVA on 11/19/141138 Last Action: Continued on 09/03/18 1042 by NIAL CASTLE Alprazolam (Alprazolam) 0.5 Mg Tablet, 1 TAB PO BID for anxiety, #60 (Reported) Entered as Reported by: JANINA BARCENAS RN on 09/03/18442 Last Action: Continued on 09/03/18 1042 by NIAL CASTLE Atenolol (Atenolol) 25 Mg Tablet, 12.5 MG PO DAILYBFRLUN, (Reported) Entered as Reported by: SPENCER CORDOVA on 11/19/141138 Last Action: Converted on 09/03/18 1042 by NIAL CASTLE Atenolol (Atenolol) 25 Mg Tablet, 1 TAB PO DAILY for high blood pressure, #30 Ref 5 (Reported) Entered as Reported by: JANINA BARCENAS RN on 09/03/18442 Last Action: Converted on 09/03/18 1042 by NIAL CASTLE Cholecalciferol (Vitamin D3) (Vitamin D3) 5,000 Unit Capsule, 5,000 UNIT PO HS, (Reported) Entered as Reported by: SPENCER CORDOVA on 11/19/141138 Last Action: Continued on 09/03/18 1042 by NIAL CASTLE Cholecalciferol (Vitamin D3) (Vitamin D) 1,000 Unit Tablet, 1,000 UNIT PO DAILY, (Reported) Entered as Reported by: CHANNING ARNOLD on 11/19/141421 Last Action: Continued on 09/03/181041 by NIAL CASTLE Donepezil Hcl (Donepezil Hcl) 5 Mg Tablet, 5 MG PO HS for dementia, (Reported) Entered as Reported by: JANINA BARCENAS RN on 09/03/18442 Last Action: Converted on 09/03/181041 by NIAL CASTLE Losartan Potassium (Losartan Potassium) 50 Mg Tablet, 50 MG PO DAILY, (Reported) Entered as Reported by: SPENCER CORDOVA on 11/19/141138 Last Action: Continued on 09/03/181041 by NIAL CASTLE Multivitamin (Multivitamins) 1 Each Tablet, 1 TAB PO DAILY for vitamin supplement, #90 Ref 3 (Reported) Entered as Reported by: JANINA BARCENAS RN on 09/03/18442 Last Action: Converted on 09/03/181041 by NIAL CASTLE Omeprazole (Omeprazole) 20 Mg Capsule.dr, 20 MG PO DAILY, (Reported) Entered as Reported by: SPENCER CORDOVA on 11/19/141138 Last Action: Converted on 09/03/181041 by NIAL CASTLE Quetiapine Fumarate (Quetiapine Fumarate) 100 Mg Tablet, 100 MG PO HS, (Reported ) Entered as Reported by: SPENCER CORDOVA on 11/19/141138 Last Action: Converted on 09/03/181041 by NIAL CASTLE Quetiapine Fumarate (Seroquel Xr) 50 Mg Tab.er.24h, 100 MG PO QHS, #30 Ref 2 ( Reported) Entered as Reported by: CHANNING ARNOLD on 11/19/141421 Last Action: Converted on 09/03/181041 by NIAL CASTLE Quetiapine Fumarate (Seroquel) 100 Mg Tablet, 125 MG PO HS for depression, ( Reported) Entered as Reported by: JANINA BARCENAS RN on 09/03/18442 Last Action: Converted on 09/03/181041 by NIAL CASTLE Ranitidine Hcl (Ranitidine Hcl) 300 Mg Capsule, 1 CAP PO NOON for gerd, #30 Ref 3 (Reported) Entered as Reported by: JANINA BARCENAS RN on 3/18/19 0443 Last Action: Converted on 09/03/18 1042 by JE MADISON Sertraline Hcl (Sertraline Hcl) 50 Mg Tablet, 50 MG PO DAILY for ANTI-DEPRESSANT , Ref 0 (Reported) Entered as Reported by: CHANNING ARNOLD on 11/19/141421 Last Action: Continued on 09/03/18 1042 by JE MADISON Simvastatin (Simvastatin) 20 Mg Tablet, 20 MG PO HS for FOR CHOLESTEROL, #30 Ref 0 (Reported) Entered as Reported by: SPENCER CORDOVA on 11/19/141138 Last Action: Converted on 09/03/18 1042 by JE MADISON Scheduled PRN Oxycodone/Apap 5-325 (Percocet 5-325 Mg Tablet ) 1 Each Tablet, 1 TAB PO PRN Q4HRS PRN for MODERATE PAIN for 3 Days, #12 Prescribed by: ALEXANDRE CHAN MD on 09/05/18 1343 Miscellaneous Medications Gluc Sheppard/Chondro Sheppard A/Vit C/Mn (Glucosamine 1,500 Complex Cp) 1 Each Capsule, 1 EACH PO, (Reported) Entered as Reported by: SPENCER CORDOVA on 11/19/141138 Last Action: Reviewed on 09/03/18 0443 by JANINA BARCENAS, RN Discontinued Medications Estradiol (Estrace) 42.5 Gm Cream.appl, 1 GM VG 3X/WEEK, #1 Ref 11 (Reported) Entered as Reported by: CHANNING ARNOLD on 11/19/141421 Last Action: Discontinued on 09/05/18 0925 by ALEXANDRE TOSCANO MD Sep 05, 2018 13:50
--- NOTE | 2018-09-05 13:52 | SNU/HH DC ---
DISCHARGE ORDERS DISCHARGE INFORMATION: DISCHARGE DATE: Sep 05, 2018 FINAL DIAGNOSIS Problems Medical Problems: (1) Distal radius fracture, left Status: Acute (2) Fracture of neck of left humerus Status: Acute (3) Tibial plateau fracture, left Status: Acute CONDITION ON DISCHARGE: Stable CODE STATUS: Code Status: Full HALF-WAY: SNF STAY <30 DAYS: Yes POST DISCHARGE ORDERS: ACTIVITY ORDERS: Activity as tolerated, Avoid exertion WEIGHT BEARING STATUS: No restrictions BATHING ORDERS: Shower-keep dressing dry, No Tub Bath until see WOUND/INCISION CARE: Other, see below DISCHARGE MEDICATIONS: Home Meds Active Scripts Oxycodone/Apap 5-325 (PERCOCET 5-325 MG TABLET ) 1 Each Tablet, 1 TAB PO PRN Q4HRS PRN for MODERATE PAIN for 3 Days, #12 TAB Prov:ALEXANDRE CHAN MD 09/05/18 Reported Medications Donepezil Hcl (DONEPEZIL HCL) 5 Mg Tablet, 5 MG PO HS for dementia, TAB 09/03/18 Quetiapine Fumarate (SEROQUEL) 100 Mg Tablet, 125 MG PO HS for depression, TAB 09/03/18 Atenolol (ATENOLOL) 25 Mg Tablet, 1 TAB PO DAILY for high blood pressure, #30 TAB 5 Refills 09/03/18 Ranitidine Hcl (RANITIDINE HCL) 300 Mg Capsule, 1 CAP PO NOON for gerd, #30 CAP 3 Refills 09/03/18 Alprazolam (ALPRAZOLAM) 0.5 Mg Tablet, 1 TAB PO BID for anxiety, #60 TAB 09/03/18 Multivitamin (MULTIVITAMINS) 1 Each Tablet, 1 TAB PO DAILY for vitamin supplement, #90 TAB 3 Refills 09/03/18 Cholecalciferol (Vitamin D3) (VITAMIN D) 1,000 Unit Tablet, 1000 UNIT PO DAILY 11/19/14 Quetiapine Fumarate (SEROQUEL XR) 50 Mg Tab.er.24h, 100 MG PO QHS, #30 TAB 2 Refills 11/19/14 Sertraline Hcl (SERTRALINE HCL) 50 Mg Tablet, 50 MG PO DAILY for ANTI-DEPRESSANT , TAB 0 Refills 11/19/14 Cholecalciferol (Vitamin D3) (VITAMIN D3) 5,000 Unit Capsule, 5000 UNIT PO HS 11/19/14 Quetiapine Fumarate (QUETIAPINE FUMARATE) 100 Mg Tablet, 100 MG PO HS, TAB 11/19/14 Simvastatin (SIMVASTATIN) 20 Mg Tablet, 20 MG PO HS for FOR CHOLESTEROL, #30 TAB 0 Refills 11/19/14 Atenolol (ATENOLOL) 25 Mg Tablet, 12.5 MG PO DAILYBFRLUN, TAB 11/19/14 Omeprazole (OMEPRAZOLE) 20 Mg Capsule.dr, 20 MG PO DAILY, CAP 11/19/14 Losartan Potassium (LOSARTAN POTASSIUM) 50 Mg Tablet, 50 MG PO DAILY, TAB 11/19/14 Alprazolam (ALPRAZOLAM) 1 Mg Tablet, 1 MG PO QID, TAB 0 Refills 1 mg am and noon, 0.5 mg 5pm and HS 11/19/14 Gluc Sheppard/Chondro Sheppard A/Vit C/Mn (GLUCOSAMINE 1,500 COMPLEX CP) 1 Each Capsule, 1 EACH PO 11/19/14 Discontinued Reported Medications Estradiol (ESTRACE) 42.5 Gm Cream.appl, 1 GM VG 3X/WEEK, #1 EACH 11 Refills 11/19/14 ALEXANDRE CHAN MD Sep 05, 2018 13:52
--- NOTE | 2018-09-05 13:58 | NUR ---
SW following. Discussed with RN, insurance has authorized for pt to go to [facility]. Pt will be transported at 1430. RN notified.
--- NOTE | 2018-09-05 14:15 | NUR ---
Spoke with Carmela RN with [facility] discussing current POC/medication/follow up appts/hx. Explained pt BP running low during hospital stay, medications not given due to low blood pressure. Carmela voiced understanding accepting pt.
--- NOTE | 2018-09-05 14:40 | NUR ---
Discussed discharge instructions/medications with pt/pt daughter. Explained transportation here to take pt over to [facility]. Discussed f/u appt with Dr. Bates x1 week and cardiology x1 week if no improvement in BP. Pt voiced understanding. IV removed by CORTNEY Hubbard without complications reported. Paperwork given to transportation personal. Pt wheeled off unit without complications.
== END 2018-09-05 14:40 | DRG 563 ==
LOC: ER 19:31 → 4 NORTH 09-03 00:07
PROVIDERS: ADMIT Internal Medicine; ATTEND Internal Medicine
DX: S52.502A Unspecified fracture of the lower end of left radius, initial encounter for closed fracture (principal); S42.212A Unspecified displaced fracture of surgical neck of left humerus, initial encounter for closed fracture; S82.142A Displaced bicondylar fracture of left tibia, initial encounter for closed fracture; F03.90 Unspecified dementia, unspecified severity, without behavioral disturbance, psychotic disturbance, mood disturbance, and anxiety; I35.0 Nonrheumatic aortic (valve) stenosis; N18.9 Chronic kidney disease, unspecified; M19.90 Unspecified osteoarthritis, unspecified site; M85.80 Other specified disorders of bone density and structure, unspecified site; W10.9XXA Fall (on) (from) unspecified stairs and steps, initial encounter; Y93.89 Activity, other specified; Y92.89 Other specified places as the place of occurrence of the external cause; Y99.8 Other external cause status; Z82.49 Family history of ischemic heart disease and other diseases of the circulatory system; Z88.0 Allergy status to penicillin; Z88.8 Allergy status to other drugs, medicaments and biological substances
CPT/HCPCS: 36415; 71046; 73060; 73090; 73110; 73502; 73562; 73590; 73700; 80053; 82306; 85007; 85025; 87641; J1170; J2270; J2405; J3010; J7120; 97110; 97530; 97535

== ENCOUNTER → 2018-12-07 | Outpatient (CLI) | payer MEDICARE, OTHER ==
[~2018-12-07] MED LIST changes: +ALPR0.5T6 PO; +DONE5TAB7 PO; +MULT1TAB52 PO; +OXYC1TAB15 PO; +QUET100T4 PO; +RANI300C PO
--- NOTE | 2018-12-07 14:04 | CARD ---
MR#: [id number] Date of Study: 12/07/2018 Ordering Physician: EDGARDO JOSE, Referring Physician: EDGARDO JOSE, Tech: Mery Junior [facility] APPROVED REPORT EXAM: Two-dimensional and M-mode echocardiogram with Doppler and color Doppler. Other Information Quality : AverageHR: 60bpm Rhythm : Other INDICATION Mitral Valve Disease 2D DIMENSIONS RVDd4.5 (2.9-3.5cm)Left Atrium(2D)4.1 (1.6-4.0cm) IVSd0.8 (0.7-1.1cm)Aortic Root(2D)2.9 (2.0-3.7cm) LVDd5.3 (3.9-5.9cm)LVOT Diameter2.1 (1.8-2.4cm) PWd0.9 (0.7-1.1cm)LVDs3.2 (2.5-4.0cm) FS (%) 39.4 %SV93.2 ml LVEF(%)69.5 (>50%) Aortic Valve AoV Peak Sudhakar.150.7cm/sAoV VTI33.3cm AO Peak GR.9.1mmHgLVOT Peak Sudhakar.86.6cm/s AO Mean GR.4mmHgAVA (VMAX)1.97cm2 BONI (VTI)2.01yb8VG P 1/2 Rkst762dn Mitral Valve MV E Izkhcnzq63.2cm/sMV DECEL [id number] MV A Hgmwvpnd91.6cm/sE/A Ratio1.2 Pulmonary Valve PV Peak Wilzbuhp23.4cm/s Tricuspid Valve TR P. Kobwgkoc727jg/sRAP GHEORYQO9naWa TR Peak Gr.84oyVaSPCS94ujJk LEFT VENTRICLE The left ventricle is normal size. There is normal left ventricular wall thickness. The left ventricu lar systolic function is normal and the ejection fraction is within normal range. The Ejection Fracti on is 65-70%. There is normal LV segmental wall motion. Transmitral Doppler flow pattern is Grade II- pseudonormal filling dynamics. RIGHT VENTRICLE The right ventricle is mildly dilated. There is normal right ventricular wall thickness. The right ve ntricular systolic function is normal. ATRIA The left atrium is mildly dilated. The right atrium is moderately dilated. The interatrial septum is intact with no evidence for an atrial septal defect or patent foramen ovale as noted on 2-D or Dopple r imaging. AORTIC VALVE The aortic valve is thickened but opens well. The aortic valve is trileaflet. Doppler and Color Flow revealed mild aortic regurgitation. There is no significant aortic valvular stenosis. There is no aor tic valvular vegetation. MITRAL VALVE Mitral annular calcification is mild. There is no evidence of mitral valve prolapse. There is no mitr al valve stenosis. Doppler and Color-flow revealed mild mitral regurgitation. TRICUSPID VALVE The tricuspid valve is normal in structure and function. Doppler and Color Flow revealed mild to mode rate tricuspid regurgitation. There is moderate pulmonary hypertension. The PA pressure was estimated at 48 mmHg. There is no tricuspid valve prolapse or vegetation. There is no tricuspid valve stenosis . PULMONIC VALVE The pulmonic valve is not well visualized. GREAT VESSELS The aortic root is normal in size. The ascending aorta is normal in size. The IVC is normal in size a nd collapses >50% with inspiration. PERICARDIAL EFFUSION There is no evidence of significant pericardial effusion. Critical Notification Critical Value: No <Conclusion> The left ventricular systolic function is normal and the ejection fraction is within normal range. Th e Ejection Fraction is 65-70%. There is normal LV segmental wall motion. The right ventricle is mildly dilated. Doppler and Color Flow revealed mild aortic regurgitation. Doppler and Color Flow revealed mild to moderate tricuspid regurgitation. There is moderate pulmonary hypertension. The PA pressure was estimated at 48 mmHg. Signed by : Zachery Joyner, Electronically Approved : 12/07/2018 14:03:34
== END | disposition home or self-care (01) ==
LOC: ECHO 12:34
PROVIDERS: ATTEND Internal Medicine Cardiovascular Disease
DX: I08.3 Combined rheumatic disorders of mitral, aortic and tricuspid valves (principal); I27.20 Pulmonary hypertension, unspecified; I11.9 Hypertensive heart disease without heart failure
CPT/HCPCS: 93306